=== PATIENT | female | born 1930 | race Caucasian/White ===

== ENCOUNTER 2020-01-25 11:05 | Inpatient (IN) | payer MEDICARE ==
--- NOTE | 2020-01-25 11:46 | EDM.PDOC ---
ED HPI GENERAL MEDICAL PROBLEM - General Chief Complaint: Back Pain or Injury Stated Complaint: [facility] Time Seen by Provider: 01/25/20 11:30 Source of Information: Reports: Patient, EMS History Limitations: Reports: No Limitations - History of Present Illness INITIAL COMMENTS - FREE TEXT/NARRATIVE: 89-year-old female with severe back pain. She has chronic recurring back pain, has never had surgery. 3 days ago she was bending over and looking in the refrigerator when she felt a pop in her right lower back. Not significant pain initially but she knew it was going to get worse as this has happened before. Over the last 48 hours she has had severe pain, difficulty getting around her home and this morning she could not get out of bed. She also has pain radiating down the left posterior leg just distal to the knee, but no paresthesias or incontinence. In reviewing her records she has a history of spinal stenosis. Onset: Gradual Duration: Day(s): (3 days) Location: Reports: Back Quality: Reports: Burning, Sharp Improves with: Reports: Movement, Other (Weightbearing is almost impossible) Lower Back Pain Score (Numeric/FACES): 5 - Related Data Allergies Allergy/AdvReac Type Severity Reaction Status Date / Time No Known Allergies Allergy Verified 01/25/20 11:07 Home Meds: Home Meds Acetaminophen/Diphenhydramine [Acetaminophen-Diphenhyd 500-25] 1 tab PO BEDTIME PRN 07/24/14 [History] Aspirin [Children's Aspirin] 1 tab PO DAILY 07/24/14 [History] Gabapentin [Neurontin] 600 mg PO BEDTIME 07/24/14 [History] HCTZ/Triamterene [Maxzide 25-37.5 MG] 1 tab PO DAILY 07/24/14 [History] Levothyroxine [Synthroid] 50 mcg PO DAILY 07/24/14 [History] atenoloL [Tenormin] 50 mg PO DAILY 01/25/20 [History] Past Medical History HEENT History: Reports: Cataract, Hard of Hearing Cardiovascular History: Reports: Hypertension Gastrointestinal History: Reports: Other (See Below) Other Gastrointestinal History: colong cancer Musculoskeletal History: Reports: Back Pain, Chronic, Other (See Below) Other Musculoskeletal History: left knee pain, restless legs Endocrine/Metabolic History: Reports: Hypothyroidism Oncologic (Cancer) History: Reports: Colon - Past Surgical History HEENT Surgical History: Reports: Cataract Surgery Cardiovascular Surgical History: Reports: None GI Surgical History: Reports: Appendectomy, Colon, Colonoscopy, Other (See Below ) Other GI Surgeries/Procedures: partial colectomy Endocrine Surgical History: Reports: None Musculoskeletal Surgical History: Reports: None Social & Family History - Family History Family Medical History: Noncontributory - Tobacco Use Smoking Status *Q: Never Smoker Second Hand Smoke Exposure: No - Caffeine Use Caffeine Use: Reports: None - Recreational Drug Use Recreational Drug Use: No ED ROS GENERAL - Review of Systems Review Of Systems: See Below Constitutional: Denies: Fever, Chills Respiratory: Reports: No Symptoms Cardiovascular: Reports: No Symptoms GI/Abdominal: Reports: No Symptoms Musculoskeletal: Reports: Back Pain Skin: Denies: Rash (No rash over painful area) Neurological: Reports: Other (Some radiculopathy-like pain down the left buttock and left leg but no paresthesias) Psychiatric: Reports: No Symptoms ED EXAM,LOWER BACK PAIN/INJURY - Physical Exam Exam: See Below Exam Limited By: No Limitations General Appearance: Alert, No Apparent Distress (Fairly comfortable when laying still and not bearing weight) Neck: Supple, Non-Tender Respiratory/Chest: No Respiratory Distress GI/Abdominal: Non-Tender Back Exam: Paraspinal Tenderness (Any palpation to either side of the lumbar spine especially from L3 lower causes intense pain. She also has marked increased pain with rotation of the left hip passively.) Neurological: Alert, Normal Mood/Affect, No Motor/Sensory Deficits (There is some limitations of movement to the left leg due to pain but no asymmetric weakness), Oriented x 3 Psychiatric: Normal Affect, Normal Mood Skin Exam: Warm, Dry Course - Vital Signs Last Recorded V/S: Last Vital Signs Temp 98.1 F 01/25/20 15:39 Pulse 57 L 01/25/20 15:39 Resp 16 01/25/20 15:39 BP 136/91 H 01/25/20 15:39 Pulse Ox 96 01/25/20 15:39 - Orders/Labs/Meds Orders: Medication Orders Acetaminophen (Tylenol) 650 mg PO Q4H PRN PRN Reason: Pain (Mild 1-3)/fever Atenolol (Tenormin) 50 mg PO DAILY [facility] Dexamethasone (Dexamethasone) 4 mg IVPUSH Q12H [facility] Gabapentin (Neurontin) 600 mg PO BEDTIME [facility] Levothyroxine Sodium (Synthroid) 50 mcg PO ACBREAKFAST [facility] Ondansetron HCl (Zofran) 4 mg IV Q4H PRN PRN Reason: Nausea/Vomiting Oxycodone HCl (Oxycodone) 5 mg PO Q4H PRN PRN Reason: Pain (moderate 4-6) Polyethylene Glycol (Miralax) 17 gm PO DAILY PRN PRN Reason: Constipation Senna/Docusate Sodium (Senna Plus) 1 tab PO BID [facility] Sodium Chloride (Saline Flush) 10 ml FLUSH ASDIRECTED PRN PRN Reason: Keep Vein Open Triamterene/HCTZ (Maxzide 25-37.5 Mg) 1 each PO DAILY [facility] Meds: Medications Generic Name Dose Route Start Last Admin Trade Name Freq PRN Reason Stop Dose Admin Acetaminophen 650 mg 01/25/20 15:07 Tylenol PO Q4H PRN Pain (Mild 1-3)/fever Atenolol 50 mg 01/26/20 09:00 Tenormin PO DAILY [facility] Dexamethasone 4 mg 01/25/20 16:00 Dexamethasone IVPUSH Q12H [facility] Gabapentin 600 mg 01/25/20 21:00 Neurontin PO BEDTIME [facility] Levothyroxine Sodium 50 mcg 01/26/20 07:30 Synthroid PO ACBREAKFAST [facility] Ondansetron HCl 4 mg 01/25/20 15:07 Zofran IV Q4H PRN Nausea/Vomiting Oxycodone HCl 5 mg 01/25/20 15:07 Oxycodone PO Q4H PRN Pain (moderate 4-6) Polyethylene Glycol 17 gm 01/25/20 15:07 Miralax PO DAILY PRN Constipation Senna/Docusate Sodium 1 tab 01/25/20 15:30 Senna Plus PO BID [facility] Sodium Chloride 10 ml 01/25/20 15:07 Saline Flush FLUSH ASDIRECTED PRN Keep Vein Open Triamterene/HCTZ 1 each 01/26/20 09:00 Maxzide 25-37.5 Mg PO DAILY [facility] Discontinued Medications Generic Name Dose Route Start Last Admin Trade Name Freq PRN Reason Stop Dose Admin Hydrocodone Bitart/Acetaminophen 1 tab 01/25/20 12:33 01/25/20 12:40 [place] 325-5 Mg PO 01/25/20 12:34 1 tab ONETIME ONE Administration - Re-Assessments/Exams Free Text/Narrative Re-Assessment/Exam: 01/25/20 12:20 Reviewed the patient's records, she had an MRI and x-ray of her back almost 4 years ago. She had significant spinal stenosis at that time. A CT of the lumbar spine was done today without contrast to rule out any pathologic fracture or compression fracture. She may need admission simply for pain control and initiation of rehab. 01/25/20 12:58 IMPRESSION: A grade 1 spondylolisthesis of L4 on L5 and L3 on L4 with circumferential disc bulges causing central canal narrowing. Mild right neural narrowing at L3-4 and left neural firing L4-5. Mild right neural firing at L1-2. Scoliosis concave right. Degenerative changes throughout the lumbar. No acute bone abnormality. Patient was given 1 5 mg Vicodin for pain control while waiting for the CT report. 01/25/20 13:21 30 minutes after the pain medication, the patient was assisted into the bathroom and did poorly, significant pain with any type of weightbearing especially down the left leg. I do not see how this patient can go home with this amount of discomfort especially since she lives independently. I asked Dr. Hoskins to visit with the patient to discuss admission for pain control, possibly a physical therapy consultation or further evaluation. Departure - Departure Time of Disposition: 14:49 Disposition: Admitted As Inpatient 67 Clinical Impression: Acute exacerbation of chronic low back pain - Discharge Information Sepsis Event Note - Evaluation Sepsis Screening Result: No Definite Risk - Focused Exam Vital Signs: Vital Signs Temp Pulse Resp BP Pulse Ox 01/25/20 11:14 96.6 F L 76 18 161/90 H 96 Date Exam was Performed: 01/25/20 Time Exam was Performed: 16:07
[2020-01-25] MEDS ORDERED: Acetaminophen/HYDROcodone 325-5 MG Tab PO ONE (12:33)
--- NOTE | 2020-01-25 12:51 | CRLCT ---
INDICATION: Severe back pain. Left radiculopathy. TECHNIQUE: Multiple axial images were obtained from T12 to the sacrum without contrast. Sagittal and coronal re-formatted images were obtained. COMPARISON: MRI done 06/26/2017. FINDINGS: There is no acute fracture seen. There is mild degenerative disc disease throughout the lumbar spine. There is vacuum disc phenomena at the L3-4 and L4-5 levels. There is scoliosis concave right. T12-L1: There is no significant central canal or neural foraminal stenosis. L1-2: There is no significant central canal or left neural foraminal narrowing. There is mild right neural foraminal narrowing secondary to a circumferential disc bulge. There are mild degenerative facet changes. L2-3: There is a mild circumferential disc bulge no significant central canal or neural foraminal stenosis. Mild degenerative facet changes. L3-4: There is grade 1 spondylolisthesis of L3-L4 with diffuse circumferential bulge. There is narrows the AP sac measuring 0.8 cm. There is a mild right neural foraminal narrowing. There are moderate degenerative facet changes. L4-5: There is grade 1 spondylolisthesis of L4 on L5 with a circumferential bulge narrowing the AP thecal sac to 0.8 cm. There is mild left neural foraminal narrowing. There is no right neural foraminal narrowing. There moderate degenerative facet changes bilaterally. L5-S1: There is no significant central canal or neural foraminal stenosis. There are mild bilateral degenerative facet changes. IMPRESSION: A grade 1 spondylolisthesis of L4 on L5 and L3 on L4 with circumferential disc bulges causing central canal narrowing. Mild right neural narrowing at L3-4 and left neural firing L4-5. Mild right neural firing at L1-2. Scoliosis concave right. Degenerative changes throughout the lumbar. No acute bone abnormality. Please note that all CT scans at this facility use dose modulation, iterative reconstruction, and/or weight-based dosing when appropriate to reduce radiation dose to as low as reasonably achievable. Dictated by Adeel Goncalves MD @ Jan 25 2020 12:49PM Signed by Dr. Adeel oGncalves @ Jan 25 2020 12:49PM
--- NOTE | 2020-01-25 14:05 | PCM.HP.2 ---
H&P History of Present Illness - General Date of Service: 01/25/20 Admit Problem/Dx: Admission Diagnosis/Problem Admission Diagnosis/Problem Pain Source of Information: Patient, Provider, RN Notes Reviewed History Limitations: Reports: No Limitations - History of Present Illness Initial Comments - Free Text/Narative: Ms. Helm is an 89-year-old woman who was admitted through the emergency department for further management of low back pain with radiculopathy of the left leg. She has had intermittent difficulties with her lower back, but has never had surgery. 3 days ago she bent over and noted onset of pain in her lower back which quickly involve the left leg. Pain has become progressively worse to the point where she is unable to ambulate independently. She lives by herself and has no immediate help, discharged home would be unsafe at this time. She denies weakness or sensory changes to the left leg and is had no bowel or bladder issues over the past 3 days. Lower Back Pain Score (Numeric/FACES): 5 - Related Data Allergies/Adverse Reactions: Allergies Allergy/AdvReac Type Severity Reaction Status Date / Time No Known Allergies Allergy Verified 01/25/20 11:07 Home Medications: Home Meds Acetaminophen/Diphenhydramine [Acetaminophen-Diphenhyd 500-25] 1 tab PO BEDTIME PRN 07/24/14 [History] Aspirin [Children's Aspirin] 1 tab PO DAILY 07/24/14 [History] Gabapentin [Neurontin] 1 cap PO BEDTIME 07/24/14 [History] HCTZ/Triamterene [Maxzide 25-37.5 MG] 1 tab PO DAILY 07/24/14 [History] Levothyroxine [Synthroid] 50 mcg PO DAILY 07/24/14 [History] atenoloL [Tenormin] 50 mg PO DAILY 01/25/20 [History] Past Medical History HEENT History: Reports: Cataract, Hard of Hearing Cardiovascular History: Reports: Hypertension Gastrointestinal History: Reports: Other (See Below) Other Gastrointestinal History: colong cancer Musculoskeletal History: Reports: Back Pain, Chronic, Other (See Below) Other Musculoskeletal History: left knee pain, restless legs Endocrine/Metabolic History: Reports: Hypothyroidism Oncologic (Cancer) History: Reports: Colon - Past Surgical History HEENT Surgical History: Reports: Cataract Surgery Cardiovascular Surgical History: Reports: None GI Surgical History: Reports: Appendectomy, Colon, Colonoscopy, Other (See Below ) Other GI Surgeries/Procedures: partial colectomy Endocrine Surgical History: Reports: None Musculoskeletal Surgical History: Reports: None Social & Family History - Family History Family Medical History: Noncontributory - Tobacco Use Smoking Status *Q: Never Smoker Second Hand Smoke Exposure: No - Caffeine Use Caffeine Use: Reports: None - Recreational Drug Use Recreational Drug Use: No H&P Review of Systems - Review of Systems: Review Of Systems: See Below General: Reports: No Symptoms HEENT: Reports: No Symptoms Pulmonary: Reports: No Symptoms Cardiovascular: Reports: No Symptoms Gastrointestinal: Reports: No Symptoms Genitourinary: Reports: No Symptoms Musculoskeletal: Reports: Back Pain, Leg Pain Skin: Reports: No Symptoms Psychiatric: Reports: No Symptoms Neurological: Reports: Difficulty Walking, Other (No weakness noted in either leg, pain with movement of the left leg). Denies: Confusion, Weakness, Change in Speech Exam - Exam Exam: See Below - Vital Signs Vital Signs: Last Vital Signs Temp 96.6 F L 01/25/20 11:14 Pulse 76 01/25/20 11:14 Resp 18 01/25/20 11:14 BP 161/90 H 01/25/20 11:14 Pulse Ox 96 01/25/20 11:14 Weight: 185 lb - Exam Quality Assessment: DVT Prophylaxis General: Alert, Oriented, Cooperative, Mild Distress HEENT: Conjunctiva Clear, Hearing Intact, Mucosa Moist & [place], Normal Nasal Septum, Posterior Pharynx Clear, Pupils Equal Neck: Supple, Trachea Midline, +2 Carotid Pulse wo Bruit Lungs: Clear to Auscultation, Normal Respiratory Effort Cardiovascular: Regular Rate, Regular Rhythm, Normal S1, Normal S2. No: Systolic Murmur, Diastolic Murmur GI/Abdominal Exam: Soft, Non-Tender, No Organomegaly, No Distention Back Exam: Normal Inspection, Full Range of Motion Extremities: Non-Tender, No Pedal Edema Skin: Warm, Dry, Intact Neurological: Cranial Nerves Intact, Strength Equal Bilateral, Normal Speech, Normal Tone, Sensation Intact. No: Focal Deficit Neuro Extensive - Mental Status: Alert, Oriented x3, Normal Mood/Affect, Normal Cognition, Memory Intact Sepsis Event Note - Evaluation Sepsis Screening Result: No Definite Risk - Focused Exam Vital Signs: Vital Signs Temp Pulse Resp BP Pulse Ox 01/25/20 11:14 96.6 F L 76 18 161/90 H 96 Date Exam was Performed: 01/25/20 Time Exam was Performed: 14:33 *Q Meaningful Use (ADM) - VTE Risk Assess *Q Each Risk Factor Represents 1 Point: Obesity ( BMI > 25 kg/m2) Total Score 1 Point Risk Factors: 1 Each Risk Factor Represents 2 Points: None Total Score 2 Point Risk Factors: 0 Each Risk Factor Represents 3 Points: Age 75 Years or Greater Total Score 3 Point Risk Factors: 3 Each Risk Factor Represents 5 Points: None Total Score 5 Point Risk Factors: 0 Venous Thromboembolism Risk Factor Score *Q: 4 Problem List Initiated/Reviewed/Updated: Yes Orders Last 24hrs: Active Orders 24 hr Category Date Time Status Patient Status Manage Transfer [TRANSFER] Routine ADT 01/25/20 14:00 Ordered Resuscitation Status Routine Resus Stat 01/25/20 14:02 Ordered Assessment/Plan Comment:: ASSESSMENT AND PLAN LOW BACK PAIN WITH RADICULOPATHY LEFT LEG-CT scan shows evidence of disc herniation at L3-4 and L4-5 with evidence of mild spinal stenosis at these levels. Scan also showed evidence of nerve root impingement on the left at L4- 5 which is likely cause of her current symptoms. -Pain and nausea medication as needed -Physical therapy consult -Decadron 4 mg IV every 12 hours -Consider epidural steroid injection, hold on use of Lovenox and hold daily aspirin HYPERTENSION -Continue outpatient medications MAINTENANCE ISSUES -DVT prophylaxis; SCUDs, hold on anticoagulation and aspirin to leave open the option of epidural steroid injection -GI prophylaxis; not indicated -Angela catheter; not indicated -Nutrition; 2 g sodium diet -Nicotine dependence; not required CODE STATUS-FULL CODE ADMISSION STATUS-patient will be admitted to inpatient status, expect at least a 2 night hospital stay for evaluation and management of problems as outlined above. At the time of this admission I do not reasonably expected evaluation and management of this problem will require more than a 96 hour hospital stay. DISPOSITION-anticipate discharge to home after the hospital stay. PRIMARY CARE PROVIDER-Dr. Lazo - Mortality Measure Prognosis:: Good
[2020-01-25] MEDS ORDERED: Acetaminophen 325 MG Tab PO PRN (15:07)
[2020-01-25] MEDS ORDERED: Polyethylene Glycol 3350 Powder 17 GM Packet PO PRN (15:07)
[2020-01-25] MEDS ORDERED: Ondansetron 4 MG/2 ML SDV IV PRN (15:07)
[2020-01-25] MEDS ORDERED: Sodium Chloride 0.9% 10 ML Syringe FLUSH PRN (15:07)
[2020-01-25] MEDS: Dexamethasone 4 MG/ML SDV IVPUSH SCH (16:18)
[2020-01-25] MEDS: oxyCODONE 5 MG Tab PO PRN (16:21)
[2020-01-25] MEDS: Gabapentin 300 MG Cap PO SCH (20:21)
[2020-01-25] MEDS ORDERED: Calcium Carbonate 500 MG Tab.Chew PO PRN (21:18)
[2020-01-26] MEDS: Dexamethasone 4 MG/ML SDV IVPUSH SCH ×2 (03:45→17:31)
[2020-01-26] MEDS: Levothyroxine 50 MCG Tab PO SCH (08:06)
[2020-01-26] MEDS ORDERED: Non-Formulary Medication 1 Each (Atenolol [Tenormin] 50 MG) PO SCH (09:00)
[2020-01-26] MEDS: Atenolol 25 MG Tab PO SCH (09:29)
[2020-01-26] MEDS: Hydrochlorothiazide/Triamterene 25-37.5 Tab PO SCH (09:29)
[2020-01-26] MEDS: Acetaminophen 500 MG Tab PO SCH ×3 (09:35→21:06)
--- NOTE | 2020-01-26 11:47 | PCM.PN ---
- General Info Date of Service: 01/26/20 Subjective Update: No acute events overnight. Pain is a little better but still fairly bothersome today. She did require assist of 1 to get to the bathroom. Still has pain radiating down the left leg to the foot. No significant radicular pain on the right. No fevers. No nausea. Tolerating steroids so far. Functional Status: Reports: Pain Controlled, Tolerating Diet - Review of Systems General: Reports: Weakness - Patient Data Vitals - Most Recent: Last Vital Signs Temp 36.9 C 01/26/20 11:19 Pulse 53 L 01/26/20 11:19 Resp 16 01/26/20 11:19 BP 113/97 H 01/26/20 11:19 Pulse Ox 95 01/26/20 11:19 Weight - Most Recent: 83.915 kg I&O - Last 24 Hours: Intake & Output 01/25/20 01/26/20 01/26/20 22:59 06:59 14:59 Intake Total 420 480 Balance 420 480 Med Orders - Current: Current Medications Acetaminophen (Tylenol Extra Strength) 1,000 mg PO TID REPLACED BY [facility] Last Admin: 01/26/20 09:35 Dose: 1,000 mg Atenolol (Tenormin) 50 mg PO DAILY REPLACED BY [facility] Last Admin: 01/26/20 09:29 Dose: 50 mg Calcium Carbonate/Glycine (Tums) 1,000 mg PO Q2H PRN PRN Reason: Indigestion Last Admin: 01/25/20 21:49 Dose: 1,000 mg Dexamethasone (Dexamethasone) 4 mg IVPUSH Q12H REPLACED BY [facility] Last Admin: 01/26/20 03:45 Dose: 4 mg Gabapentin (Neurontin) 600 mg PO BEDTIME REPLACED BY [facility] Last Admin: 01/25/20 20:21 Dose: 600 mg Levothyroxine Sodium (Synthroid) 50 mcg PO ACBREAKFAST REPLACED BY [facility] Last Admin: 01/26/20 08:06 Dose: 50 mcg Ondansetron HCl (Zofran) 4 mg IV Q4H PRN PRN Reason: Nausea/Vomiting Oxycodone HCl (Oxycodone) 5 mg PO Q4H PRN PRN Reason: Pain (moderate 4-6) Last Admin: 01/25/20 16:21 Dose: 5 mg Polyethylene Glycol (Miralax) 17 gm PO DAILY PRN PRN Reason: Constipation Senna/Docusate Sodium (Senna Plus) 1 tab PO BID [facility] Last Admin: 01/26/20 09:29 Dose: 1 tab Sodium Chloride (Saline Flush) 10 ml FLUSH ASDIRECTED PRN PRN Reason: Keep Vein Open Triamterene/HCTZ (Maxzide 25-37.5 Mg) 1 each PO DAILY [facility] Last Admin: 01/26/20 09:29 Dose: 1 each Discontinued Medications Acetaminophen (Tylenol) 650 mg PO Q4H PRN PRN Reason: Pain (Mild 1-3)/fever Last Admin: 01/25/20 16:21 Dose: 650 mg Hydrocodone Bitart/Acetaminophen ([place] 325-5 Mg) 1 tab PO ONETIME ONE Stop: 01/25/20 12:34 Last Admin: 01/25/20 12:40 Dose: 1 tab - Exam Quality Assessment: No: Supplemental Oxygen General: Alert, Oriented, Cooperative, No Acute Distress Lungs: Normal Respiratory Effort GI/Abdominal Exam: Soft, No Distention Extremities: No Pedal Edema Psy/Mental Status: Alert, Normal Affect Sepsis Event Note - Evaluation Sepsis Screening Result: No Definite Risk - Focused Exam Vital Signs: Vital Signs Temp Pulse Pulse Pulse Resp BP BP 01/26/20 11:19 36.9 C 53 L 16 01/26/20 09:29 64 145/58 H 01/26/20 08:10 35.9 C L 64 12 01/26/20 03:38 36.4 C 60 16 01/26/20 00:15 36.2 C 58 L 16 145/70 H BP Pulse Ox 01/26/20 11:19 113/97 H 95 01/26/20 09:29 01/26/20 08:10 145/58 H 96 01/26/20 03:38 123/56 L 93 L 01/26/20 00:15 94 L Date Exam was Performed: 01/26/20 Time Exam was Performed: 12:48 - Problem List Review Problem List Initiated/Reviewed/Updated: Yes - My Orders Last 24 Hours: My Active Orders 01/26/20 09:00 Acetaminophen [Tylenol Extra Strength] 1,000 mg PO TID 01/27/20 05:00 BASIC METABOLIC PANEL,BMP [CHEM] Timed CBC W/O DIFF,HEMOGRAM [HEME] Timed (1) - Plan Plan:: ASSESSMENT AND PLAN LOW BACK PAIN WITH RADICULOPATHY LEFT LEG-CT scan shows evidence of disc herniation at L3-4 and L4-5 with evidence of mild spinal stenosis at these levels. Scan also showed evidence of nerve root impingement on the left at L4- 5 which is likely cause of her current symptoms. Doing a little better today but still requiring a fair amount of assistance. -Scheduled acetaminophen -As needed narcotics -Continue gabapentin -Physical therapy consult -Decadron 4 mg IV every 12 hours -epidural steroid injection this afternoon HYPERTENSION-stable. -Continue outpatient medications MAINTENANCE ISSUES -DVT prophylaxis; SCUDs -GI prophylaxis; not indicated -Angela catheter; not indicated -Nutrition; 2 g sodium diet DISPOSITION-anticipate discharge to home with home care after the hospital stay. Manjeet Archer MD
[2020-01-26] MEDS ORDERED: methylPREDNISolone Acetate 80 MG/ML SDV ONE (14:37)
[2020-01-26] MEDS ORDERED: Bupivacaine 0.25% 10 ML SDV ONE (14:37)
[2020-01-26] MEDS: Gabapentin 300 MG Cap PO SCH (21:06)
--- NOTE | 2020-01-26 21:43 | ANES ---
DATE OF SERVICE: 01/26/2020 INDICATIONS: Lucila is an 89-year-old female patient who had come in on Sunday yesterday evening January 24 for back pain and then ended up having a CT scan that showed she had according to Dr. Archer a L4-5 disk bulge with radicular pain down into her left leg. Dr. Archer was requesting the patient receive epidural steroid injection for back pain. Today, I went up and discussed the risks and benefits with the patient. The patient is in pretty good health and is not on any blood thinners. Has not had any significant back issues or back surgery and wishes to proceed with the epidural steroid injection today. Please refer to the doctor's notes for ICD-10 code and diagnosis. TECHNIQUE: The patient was then sat at the edge of the bed. Betadine prep x3 to the lumbar region was done, sterile drape was placed. A time-out for procedure was done at that time. 1% lidocaine skin wheal and deep was done. A 17-gauge Tuohy needle was inserted at approximately the L4-5 position. Loss of resistance was easily achieved. Negative paresthesia, negative heme, negative CSF were noted. I then proceeded to give the patient 7 mL of sterile normal saline with 2 mL of 0.25% Sensorcaine and 1 mL of 80 mg Depo-Medrol. The Tuohy needle was then flushed and withdrawn. Sterile drape was taken down. Betadine was cleaned off her back and a Band-Aid was applied to the puncture site for hemostasis. The patient tolerated the procedure without difficulty. Please refer to the nurse's notes for vital signs. The patient is already an inpatient and under the care of Dr. Archer, so the patient will be monitored vital signs for the next 15 to 30 minutes with the nurse but discharge will be upon Dr. Archer. I did set the patient up for about 2-1/2 weeks for pain clinic again for her second JASON. Ramiro Granado CRNA /[id number]
[2020-01-26] MEDS: Melatonin 3 MG Tab PO PRN (21:52)
[2020-01-26] MEDS: oxyCODONE 5 MG Tab PO PRN (21:52)
[2020-01-27] MEDS: Dexamethasone 4 MG/ML SDV IVPUSH SCH (03:52)
[2020-01-27] MEDS: Levothyroxine 50 MCG Tab PO SCH (07:15)
[2020-01-27] MEDS: Atenolol 25 MG Tab PO SCH (09:29)
[2020-01-27] MEDS: Hydrochlorothiazide/Triamterene 25-37.5 Tab PO SCH (09:29)
[2020-01-27] MEDS: Acetaminophen 500 MG Tab PO SCH ×3 (09:29→22:03)
--- NOTE | 2020-01-27 11:41 | PCM.PN ---
- General Info Date of Service: 01/27/20 Subjective Update: No acute events overnight. Pain is a little better today. She reports very little pain at rest but does have moderate pain with activity. She thinks this is a little better today. She did tolerate her epidural steroid injection well yesterday. This morning she feels dizzy/lightheaded. She reports seeing unusual things on the floor and describes brown shag carpet rather than the hard and smooth hospital floor. She has not had any fevers. Functional Status: Reports: Pain Controlled, Tolerating Diet - Review of Systems General: Reports: Weakness Musculoskeletal: Reports: Back Pain, Leg Pain - Patient Data Vitals - Most Recent: Last Vital Signs Temp 35.9 C L 01/27/20 07:18 Pulse 52 L 01/27/20 09:29 Resp 16 01/27/20 07:18 BP 161/60 H 01/27/20 09:29 Pulse Ox 96 01/27/20 07:18 Weight - Most Recent: 83.915 kg I&O - Last 24 Hours: Intake & Output 01/26/20 01/27/20 01/27/20 22:59 06:59 14:59 Intake Total 540 450 Balance 540 450 Lab Results Last 24 Hours: Laboratory Results - last 24 hr 01/27/20 01/27/20 Range/Units 04:15 04:15 WBC 16.2 H (4.5-11.0) K/uL RBC 4.31 (3.30-5.50) M/uL Hgb 13.4 (12.0-15.0) g/dL Hct 39.0 (36.0-48.0) % MCV 91 (80-98) fL MCH 31 (27-31) pg MCHC 34 (32-36) % Plt Count 213 (150-400) K/uL Sodium 130 L (140-148) mmol/L Potassium 4.1 (3.6-5.2) mmol/L Chloride 95 L (100-108) mmol/L Carbon Dioxide 25 (21-32) mmol/L Anion Gap 14.1 H (5.0-14.0) mmol/L BUN 22 H (7-18) mg/dL Creatinine 1.4 H (0.6-1.0) mg/dL Est Cr Clr Drug Dosing 21.78 mL/min Estimated GFR (MDRD) 35 L (>60) Glucose 123 H (74-106) mg/dL Calcium 8.6 (8.5-10.1) mg/dL Med Orders - Current: Current Medications Acetaminophen (Tylenol Extra Strength) 1,000 mg PO TID [facility] Last Admin: 01/27/20 09:29 Dose: 1,000 mg Atenolol (Tenormin) 50 mg PO DAILY [facility] Last Admin: 01/27/20 09:29 Dose: 50 mg Calcium Carbonate/Glycine (Tums) 1,000 mg PO Q2H PRN PRN Reason: Indigestion Last Admin: 01/25/20 21:49 Dose: 1,000 mg Dexamethasone (Dexamethasone) 4 mg IVPUSH Q12H [facility] Last Admin: 01/27/20 03:52 Dose: 4 mg Gabapentin (Neurontin) 600 mg PO BEDTIME [facility] Last Admin: 01/26/20 21:06 Dose: 600 mg Levothyroxine Sodium (Synthroid) 50 mcg PO ACBREAKFAST [facility] Last Admin: 01/27/20 07:15 Dose: 50 mcg Melatonin (Melatonin) 9 mg PO BEDTIME PRN PRN Reason: Insomnia Last Admin: 01/26/20 21:52 Dose: 9 mg Ondansetron HCl (Zofran) 4 mg IV Q4H PRN PRN Reason: Nausea/Vomiting Oxycodone HCl (Oxycodone) 5 mg PO Q4H PRN PRN Reason: Pain (moderate 4-6) Last Admin: 01/26/20 21:52 Dose: 5 mg Polyethylene Glycol (Miralax) 17 gm PO DAILY PRN PRN Reason: Constipation Senna/Docusate Sodium (Senna Plus) 1 tab PO BID [facility] Last Admin: 01/27/20 09:29 Dose: 1 tab Sodium Chloride (Saline Flush) 10 ml FLUSH ASDIRECTED PRN PRN Reason: Keep Vein Open Triamterene/HCTZ (Maxzide 25-37.5 Mg) 1 each PO DAILY [facility] Last Admin: 01/27/20 09:29 Dose: 1 each Discontinued Medications Acetaminophen (Tylenol) 650 mg PO Q4H PRN PRN Reason: Pain (Mild 1-3)/fever Last Admin: 01/25/20 16:21 Dose: 650 mg Hydrocodone Bitart/Acetaminophen ([place] 325-5 Mg) 1 tab PO ONETIME ONE Stop: 01/25/20 12:34 Last Admin: 01/25/20 12:40 Dose: 1 tab Bupivacaine HCl (Sensorcaine-Mpf 0.25%) Confirm Administered Dose 10 ml .ROUTE .STK-MED ONE Stop: 01/26/20 14:38 Methylprednisolone Acetate (Depo-Medrol) Confirm Administered Dose 80 mg .ROUTE .STK-MED ONE Stop: 01/26/20 14:38 - Exam Quality Assessment: No: Supplemental Oxygen General: Alert, Oriented, Cooperative, No Acute Distress Lungs: Normal Respiratory Effort Cardiovascular: Regular Rate, Regular Rhythm GI/Abdominal Exam: Soft, No Distention Extremities: No Pedal Edema Skin: Warm, Dry Psy/Mental Status: Alert, Normal Affect Sepsis Event Note - Evaluation Sepsis Screening Result: No Definite Risk - Focused Exam Vital Signs: Vital Signs Temp Pulse Pulse Resp BP BP Pulse Ox 01/27/20 09:29 52 L 161/60 H 01/27/20 07:18 35.9 C L 50 L 16 161/60 H 96 01/27/20 03:54 35.8 C L 52 L 16 137/53 L 94 L Date Exam was Performed: 01/27/20 Time Exam was Performed: 14:44 - Problem List Review Problem List Initiated/Reviewed/Updated: Yes - My Orders Last 24 Hours: My Active Orders 01/26/20 20:14 Melatonin 9 mg PO BEDTIME PRN 01/27/20 11:39 UA W/MICROSCOPIC [URIN] Routine - Plan Plan:: ASSESSMENT AND PLAN LOW BACK PAIN WITH RADICULOPATHY LEFT LEG-CT scan shows evidence of disc herniation at L3-4 and L4-5 with evidence of mild spinal stenosis at these levels. Scan also showed evidence of nerve root impingement on the left at L4- 5 which is likely cause of her current symptoms. Tolerated JASON well. Pain controlled decent at this time. She is having some hallucinations which could be from the steroids. -Scheduled acetaminophen -As needed narcotics -Continue gabapentin -Physical therapy consult -Discontinue IV steroids HYPERTENSION-stable. -Continue outpatient medications MAINTENANCE ISSUES -DVT prophylaxis; SCUDs -GI prophylaxis; not indicated -Angela catheter; not indicated -Nutrition; 2 g sodium diet DISPOSITION-anticipate discharge to home with home care after the hospital stay. With her dizziness and possible hallucinations she is not safe for discharge today but hopefully tomorrow. Manjeet Archer MD
[2020-01-27] MEDS: Gabapentin 300 MG Cap PO SCH (22:04)
[2020-01-27] MEDS: Melatonin 3 MG Tab PO PRN (22:07)
[2020-01-28] MEDS: Levothyroxine 50 MCG Tab PO SCH (07:45)
[2020-01-28] MEDS: Acetaminophen 500 MG Tab PO SCH ×4 (09:23→21:03)
[2020-01-28] MEDS: Hydrochlorothiazide/Triamterene 25-37.5 Tab PO SCH (09:24)
[2020-01-28] MEDS: Atenolol 25 MG Tab PO SCH (09:24)
[2020-01-28] MEDS: oxyCODONE 5 MG Tab PO PRN ×4 (10:02→22:28)
--- NOTE | 2020-01-28 11:01 | PCM.PN ---
- General Info Date of Service: 01/28/20 Subjective Update: There were no acute events overnight. Patient had excellent pain control throughout the day yesterday. Her nausea has resolved. Her dizziness has resolved. Vital signs have been stable. She did well with physical therapy this morning but unfortunately shortly afterwards developed moderately severe pain that radiates from her lower back down the left leg. She just received a pain pill prior to me seeing her but it has not helped much yet. Prior to this still she had not used pain medications in more than 24 hours. Functional Status: Reports: Tolerating Diet. Denies: Pain Controlled - Review of Systems General: Denies: Fever Musculoskeletal: Reports: Back Pain, Leg Pain - Patient Data Vitals - Most Recent: Last Vital Signs Temp 36.9 C 01/28/20 10:32 Pulse 64 01/28/20 10:32 Resp 18 01/28/20 10:32 BP 127/48 L 01/28/20 10:32 Pulse Ox 96 01/28/20 10:32 Weight - Most Recent: 83.915 kg I&O - Last 24 Hours: Intake & Output 01/27/20 01/28/20 01/28/20 22:59 06:59 14:59 Intake Total 150 260 Output Total 600 Balance -450 260 Lab Results Last 24 Hours: Laboratory Results - last 24 hr 01/27/20 Range/Units 16:03 Urine Color Yellow (YELLOW) Urine Appearance Clear (CLEAR) Urine pH 7.0 (5.0-8.0) Ur Specific [place] 1.020 (1.008-1.030) Urine Protein Negative (NEGATIVE) mg/dL Urine Glucose (UA) Negative (NEGATIVE) mg/dL Urine Ketones Negative (NEGATIVE) mg/dL Urine Occult Blood Trace-intact H (NEGATIVE) Urine Nitrite Negative (NEGATIVE) Urine Bilirubin Negative (NEGATIVE) Urine Urobilinogen 0.2 (0.2-1.0) EU/dL Ur Leukocyte Esterase Negative (NEGATIVE) Urine RBC 0-5 (0-5) Urine WBC 0-5 (0-5) Ur Epithelial Cells Few Amorphous Sediment Not seen Urine Bacteria Few Urine Mucus Not seen Med Orders - Current: Current Medications Acetaminophen (Tylenol Extra Strength) 1,000 mg PO TID [facility] Last Admin: 01/28/20 09:30 Dose: Not Given Atenolol (Tenormin) 50 mg PO DAILY [facility] Last Admin: 01/28/20 09:24 Dose: 50 mg Calcium Carbonate/Glycine (Tums) 1,000 mg PO Q2H PRN PRN Reason: Indigestion Last Admin: 01/25/20 21:49 Dose: 1,000 mg Gabapentin (Neurontin) 600 mg PO BEDTIME [facility] Last Admin: 01/27/20 22:04 Dose: 600 mg Levothyroxine Sodium (Synthroid) 50 mcg PO ACBREAKFAST [facility] Last Admin: 01/28/20 07:45 Dose: 50 mcg Melatonin (Melatonin) 9 mg PO BEDTIME PRN PRN Reason: Insomnia Last Admin: 01/27/20 22:07 Dose: 9 mg Ondansetron HCl (Zofran) 4 mg IV Q4H PRN PRN Reason: Nausea/Vomiting Oxycodone HCl (Oxycodone) 5 mg PO Q4H PRN PRN Reason: Pain (moderate 4-6) Last Admin: 01/28/20 10:02 Dose: 5 mg Polyethylene Glycol (Miralax) 17 gm PO DAILY PRN PRN Reason: Constipation Senna/Docusate Sodium (Senna Plus) 1 tab PO BID [facility] Last Admin: 01/28/20 09:23 Dose: 1 tab Sodium Chloride (Saline Flush) 10 ml FLUSH ASDIRECTED PRN PRN Reason: Keep Vein Open Triamterene/HCTZ (Maxzide 25-37.5 Mg) 1 each PO DAILY [facility] Last Admin: 01/28/20 09:24 Dose: 1 each Discontinued Medications Acetaminophen (Tylenol) 650 mg PO Q4H PRN PRN Reason: Pain (Mild 1-3)/fever Last Admin: 01/25/20 16:21 Dose: 650 mg Hydrocodone Bitart/Acetaminophen ([place] 325-5 Mg) 1 tab PO ONETIME ONE Stop: 01/25/20 12:34 Last Admin: 01/25/20 12:40 Dose: 1 tab Bupivacaine HCl (Sensorcaine-Mpf 0.25%) Confirm Administered Dose 10 ml .ROUTE .STK-MED ONE Stop: 01/26/20 14:38 Dexamethasone (Dexamethasone) 4 mg IVPUSH Q12H [facility] Last Admin: 01/27/20 03:52 Dose: 4 mg Methylprednisolone Acetate (Depo-Medrol) Confirm Administered Dose 80 mg .ROUTE .STK-MED ONE Stop: 01/26/20 14:38 - Exam Quality Assessment: No: Supplemental Oxygen General: Alert, Oriented, Cooperative, No Acute Distress Lungs: Normal Respiratory Effort Cardiovascular: Regular Rate, Regular Rhythm GI/Abdominal Exam: Soft, No Distention Back Exam: Vertebral Tenderness (lower lumbar ). No: Muscle Spasm Extremities: No Pedal Edema Skin: Warm, Dry Psy/Mental Status: Alert, Normal Affect Sepsis Event Note - Evaluation Sepsis Screening Result: No Definite Risk - Focused Exam Vital Signs: Vital Signs Temp Pulse Pulse Resp BP BP Pulse Ox 01/28/20 10:32 36.9 C 64 18 127/48 L 96 01/28/20 09:24 55 L 119/59 L 01/28/20 07:00 34.6 C L 50 L 16 146/75 H 96 01/28/20 03:00 16 Date Exam was Performed: 01/28/20 Time Exam was Performed: 13:28 - Problem List Review Problem List Initiated/Reviewed/Updated: Yes - My Orders Last 24 Hours: My Active Orders 01/28/20 10:59 Trolamine Salicylate/Aloe Vera [Aspercreme 10%] 1 gm TOP Q1H PRN dexAMETHasone 4 mg PO ONETIME ONE 01/28/20 11:00 Cooling Warming Measures [RC] ASDIRECTED Heat Therapy [OM.PC] Routine 01/29/20 09:00 dexAMETHasone 4 mg PO DAILY - Plan Plan:: ASSESSMENT AND PLAN LOW BACK PAIN WITH RADICULOPATHY LEFT LEG-CT scan shows evidence of disc herniation at L3-4 and L4-5 with evidence of mild spinal stenosis at these levels. Scan also showed evidence of nerve root impingement on the left at L4- 5 which is likely cause of her current symptoms. Tolerated JASON well. Pain had been well controlled until after physical therapy. She is now in significant discomfort. Nausea and dizziness better after IV steroids were stopped yesterday. -Scheduled acetaminophen -As needed narcotics -Continue gabapentin -Once daily oral steroids -Aspercreme as needed -Heating pad to lower back -Physical therapy consult HYPERTENSION-stable. -Continue outpatient medications MAINTENANCE ISSUES -DVT prophylaxis; SCUDs -GI prophylaxis; not indicated -Angela catheter; not indicated -Nutrition; 2 g sodium diet DISPOSITION-anticipate discharge to home with home care after the hospital stay. With her significantly increased pain today she is not safe for discharge. Manjeet Archer MD
[2020-01-28] MEDS ORDERED: Dexamethasone 4 MG Tab PO ONE (11:30)
[2020-01-28] MEDS: Trolamine Salicylate/Aloe Vera 10% Crm 85 GM Tube TOP PRN ×2 (11:54→21:06)
[2020-01-28] MEDS: Gabapentin 300 MG Cap PO SCH (21:03)
[2020-01-28] MEDS: Melatonin 3 MG Tab PO PRN (21:06)
[2020-01-29] MEDS: Levothyroxine 50 MCG Tab PO SCH (07:31)
[2020-01-29] MEDS ORDERED: Dexamethasone 4 MG Tab PO SCH (08:00)
[2020-01-29] MEDS: Hydrochlorothiazide/Triamterene 25-37.5 Tab PO SCH (08:50)
[2020-01-29] MEDS: Atenolol 25 MG Tab PO SCH (08:51)
[2020-01-29] MEDS: Acetaminophen 500 MG Tab PO SCH ×2 (08:51→13:58)
[2020-01-29] MEDS: Trolamine Salicylate/Aloe Vera 10% Crm 85 GM Tube TOP PRN ×2 (09:15→11:41)
--- NOTE | 2020-01-29 10:04 | PCM.DCSUM1 ---
Discharge Summary - Hospital Course Brief History: 89-year-old female with history of stage III chronic kidney disease, essential hypertension and chronic lower back pain who presented with acute on chronic lower back pain. She was admitted for management of an exacerbation of her lower back pain with radiculopathy. CT scan noted disc bulging at 2 levels with nerve impingement at 2 levels. Diagnosis: Stroke: No - Discharge Data Discharge Date: 01/29/20 Discharge Disposition: DC/Tfer to SNF 03 Condition: Good - Referral to Home Health Primary Care Physician: Sim Lazo MD - Discharge Diagnosis/Problem(s) (1) Lumbar disc disease with radiculopathy SNOMED Code(s): 688149427 ICD Code: M51.16 - INTERVERTEBRAL DISC DISORDERS W RADICULOPATHY, LUMBAR REGION Status: Acute Current Visit: Yes (2) CKD (chronic kidney disease), stage III SNOMED Code(s): 143918469 ICD Code: N18.3 - CHRONIC KIDNEY DISEASE, STAGE 3 (MODERATE) Status: Chronic Current Visit: Yes (3) Essential hypertension SNOMED Code(s): 82777290 ICD Code: I10 - ESSENTIAL (PRIMARY) HYPERTENSION Status: Chronic Current Visit: Yes - Patient Summary/Data Consults: Consultations 01/25/20 15:07 PT Evaluation and Treatment [CONS] Routine Please Evaluate and Treat. PT Reason for Consult: Low back pain with radiculopathy This query below is only for informational purposes and is not editable. Hospital Course: Lucila scented with acute on chronic lower back pain with pain radiating down the left leg. A CT scan was obtained in the emergency room and this showed disc bulges at L3/L4 and L4/L5. She had some nerve root impingement on the right at L3/L4 as well as on the left at L4/L5. She was started on IV steroids and oxycodone and admitted to the hospital for further management and physical therapy. The morning after admission we did add scheduled acetaminophen. I asked the anesthesia folks to come see her about an epidural steroid injection and this was performed the day after admission. She tolerated the procedure well. Overnight her pain was well controlled and there were no major issues. The next morning she had developed nausea and dizziness. I suspect that this was related to her IV steroids so I discontinued the dexamethasone at this point. Overnight the nausea and dizziness settled down. The next morning unfortunately she developed more acute pain in the lower back following physical therapy. This did eventually calm down with combination of oxycodone, heating pad and Aspercreme. We did restart steroids but scheduled them only once daily and utilized oral rather than IV. She has tolerated these well other than having some difficulty with sleeping. Overall her pain is fairly well-controlled with the scheduled acetaminophen, as needed oxycodone along with the steroids, steroid injections and gabapentin. She has been working with physical therapy and overall does fairly well but she would benefit from subacute rehab to improve her strength and endurance as she is able to only tolerate short periods of activity for her pain increases. She is elderly and lives alone and is not safe for discharge to home even with home care at this point. She will be discharged to the transitional care unit for subacute rehab. - Patient Instructions Diet: Regular Diet as Tolerated Activity: As Tolerated Driving: Do Not Drive (if taking pain pills) Showering/Bathing: May Shower Notify Provider of: Fever, Increased Pain, Nausea and/or Vomiting Other/Special Instructions: 1. You were in the hospital for management of lower back pain and left leg pain resulting from bulging disks in your lumbar spine at L3/L4 and L4/L5. These disc bulges are pressing on the nerve roots as they exit from the spinal cord in your lower back. We are treating the pain with a combination of scheduled acetaminophen, as needed oxycodone, gabapentin at bedtime as well as a temporary course of steroids. While you were in the hospital you did receive an epidural steroid injection and another one is planned for early in February. I do recommend subacute rehab with physical and occupational therapy to help improve your strength, endurance and hopefully help reduce the pain even further. 2. Continue your usual home medications as previously prescribed. 3. Code status - FULL CODE. 4. Referral to physical and occupational therapy for strengthening in the setting of acute lower back pain with radiculopathy. - Discharge Plan *PRESCRIPTION DRUG MONITORING PROGRAM REVIEWED*: Not Applicable *COPY OF PRESCRIPTION DRUG MONITORING REPORT IN PATIENT CONNER: Not Applicable Prescriptions/Med Rec: Acetaminophen [Tylenol Extra Strength] 1,000 mg PO TID #200 tablet dexAMETHasone [Dexamethasone] 2 mg PO DAILY #5 tablet dexAMETHasone [Dexamethasone] 4 mg PO DAILY@0800 #3 tablet Melatonin 10 mg PO BEDTIME #15 tablet oxyCODONE 5 mg PO Q4H PRN #45 tablet PRN Reason: Pain (Moderate 4-6) Trolamine Salicylate/Aloe Vera [Aspercreme 10%] 1 gm TOP Q4H PRN #60 tube PRN Reason: lower back pain Home Medications: Home Meds Aspirin [Children's Aspirin] 1 tab PO DAILY 07/24/14 [History] Gabapentin [Neurontin] 600 mg PO BEDTIME 07/24/14 [History] HCTZ/Triamterene [Maxzide 25-37.5 MG] 1 tab PO DAILY 07/24/14 [History] Levothyroxine [Synthroid] 50 mcg PO DAILY 07/24/14 [History] atenoloL [Tenormin] 50 mg PO DAILY 01/25/20 [History] Acetaminophen [Tylenol Extra Strength] 1,000 mg PO TID #200 tablet 01/29/20 [Rx] Melatonin 10 mg PO BEDTIME #15 tablet 01/29/20 [Rx] Trolamine Salicylate/Aloe Vera [Aspercreme 10%] 1 gm TOP Q4H PRN #60 tube [Rx] dexAMETHasone [Dexamethasone] 2 mg PO DAILY #5 tablet 01/29/20 [Rx] dexAMETHasone [Dexamethasone] 4 mg PO DAILY@0800 #3 tablet 01/29/20 [Rx] oxyCODONE 5 mg PO Q4H PRN #45 tablet 01/29/20 [Rx] Oxygen Therapy Mode: Room Air Patient Handouts: Lumbosacral Radiculopathy Referrals: Sim Lazo MD [Primary Care Provider] - Ramiro Granado CRNA [HERBARIUM CURATOR] - 02/11/20 2:15 pm (Epidural steriod injection at [facility] on February 10 at 2:15 in outpatient department. Plan for approximately 1 hour time. ) - Discharge Summary/Plan Comment DC Time >30 min.: Yes (40-new [facility] discharge ) - Patient Data Vitals - Most Recent: Last Vital Signs Temp 36.2 C 01/29/20 07:29 Pulse 52 L 01/29/20 08:51 Resp 16 01/29/20 07:29 BP 133/56 L 01/29/20 08:51 Pulse Ox 96 01/29/20 07:29 Weight - Most Recent: 83.915 kg Med Orders - Current: Current Medications Acetaminophen (Tylenol Extra Strength) 1,000 mg PO TID COUNT INCLUDES [facility] Last Admin: 01/29/20 08:51 Dose: 1,000 mg Atenolol (Tenormin) 50 mg PO DAILY COUNT INCLUDES [facility] Last Admin: 01/29/20 08:51 Dose: 50 mg Calcium Carbonate/Glycine (Tums) 1,000 mg PO Q2H PRN PRN Reason: Indigestion Last Admin: 01/25/20 21:49 Dose: 1,000 mg Dexamethasone (Dexamethasone) 4 mg PO DAILY@0800 COUNT INCLUDES THE [facility] Last Admin: 01/29/20 08:50 Dose: 4 mg Gabapentin (Neurontin) 600 mg PO BEDTIME COUNT INCLUDES THE [facility] Last Admin: 01/28/20 21:03 Dose: 600 mg Levothyroxine Sodium (Synthroid) 50 mcg PO ACBREAKFAST COUNT INCLUDES THE [facility] Last Admin: 01/29/20 07:31 Dose: 50 mcg Melatonin (Melatonin) 9 mg PO BEDTIME PRN PRN Reason: Insomnia Last Admin: 01/28/20 21:06 Dose: 9 mg Ondansetron HCl (Zofran) 4 mg IV Q4H PRN PRN Reason: Nausea/Vomiting Oxycodone HCl (Oxycodone) 5 mg PO Q4H PRN PRN Reason: Pain (moderate 4-6) Last Admin: 01/28/20 22:28 Dose: 5 mg Polyethylene Glycol (Miralax) 17 gm PO DAILY PRN PRN Reason: Constipation Senna/Docusate Sodium (Senna Plus) 1 tab PO BID [facility]CLUD[facility] Last Admin: 01/29/20 08:51 Dose: 1 tab Sodium Chloride (Saline Flush) 10 ml FLUSH ASDIRECTED PRN PRN Reason: Keep Vein Open Triamterene/HCTZ (Maxzide 25-37.5 Mg) 1 each PO DAILY [facility]CLUDES [facility] Last Admin: 01/29/20 08:50 Dose: 1 each Trolamine Salicylate (Aspercreme 10%) 0 gm TOP Q1H PRN PRN Reason: lower back pain Last Admin: 01/29/20 09:15 Dose: 1 applic Discontinued Medications Acetaminophen (Tylenol) 650 mg PO Q4H PRN PRN Reason: Pain (Mild 1-3)/fever Last Admin: 01/25/20 16:21 Dose: 650 mg Hydrocodone Bitart/Acetaminophen ([place] 325-5 Mg) 1 tab PO ONETIME ONE Stop: 01/25/20 12:34 Last Admin: 01/25/20 12:40 Dose: 1 tab Bupivacaine HCl (Sensorcaine-Mpf 0.25%) Confirm Administered Dose 10 ml .ROUTE .STK-MED ONE Stop: 01/26/20 14:38 Dexamethasone (Dexamethasone) 4 mg IVPUSH Q12H [facility] Last Admin: 01/27/20 03:52 Dose: 4 mg Dexamethasone (Dexamethasone) 4 mg PO ONETIME ONE Stop: 01/28/20 11:31 Last Admin: 01/28/20 11:55 Dose: 4 mg Methylprednisolone Acetate (Depo-Medrol) Confirm Administered Dose 80 mg .ROUTE .STK-MED ONE Stop: 01/26/20 14:38 - Exam Quality Assessment: Denies: Supplemental Oxygen General: Reports: Alert, Oriented, Cooperative, No Acute Distress Lungs: Reports: Normal Respiratory Effort Cardiovascular: Reports: Regular Rate, Regular Rhythm GI/Abdominal Exam: Soft, No Distention Extremities: No Pedal Edema Psy/Mental Status: Reports: Alert, Normal Affect
[2020-01-29 11:40] VITALS: BP 99/71; PULSE 53
[2020-01-29] MEDS: oxyCODONE 5 MG Tab PO PRN (11:40)
== END 2020-01-29 14:14 | DRG 552 ==
LOC: JP.ED 11:05 → JP.MS 14:00
PROVIDERS: ADMIT Hospitalist; ATTEND Internal Medicine
PROC: 3E0R33Z Introduction of Anti-inflammatory into Spinal Canal, Percutaneous Approach (ICD-10-PCS; principal; 2020-01-26)
DX: M51.16 Intervertebral disc disorders with radiculopathy, lumbar region (principal); M43.16 Spondylolisthesis, lumbar region; I10 Essential (primary) hypertension; M48.061 Spinal stenosis, lumbar region without neurogenic claudication; Z79.82 Long term (current) use of aspirin; Z79.899 Other long term (current) drug therapy; I12.9 Hypertensive chronic kidney disease with stage 1 through stage 4 chronic kidney disease, or unspecified chronic kidney disease; N18.3 Chronic kidney disease, stage 3 (moderate); R42 Dizziness and giddiness; R11.0 Nausea; T38.0X5A Adverse effect of glucocorticoids and synthetic analogues, initial encounter; E03.9 Hypothyroidism, unspecified; Z98.49 Cataract extraction status, unspecified eye; Z85.038 Personal history of other malignant neoplasm of large intestine; Z90.49 Acquired absence of other specified parts of digestive tract
CPT/HCPCS: 36415; 72131; 80048; 81001; 85027; 97110-GP; 97116-GP; 97161-GP; 97530-GP; 99283; 99285-25; A9270-GY; J1040; J1100; J3490; J8540

== ENCOUNTER 2021-01-05 00:17 | Inpatient (IN) | payer MEDICARE ==
--- NOTE | 2021-01-05 00:57 | EDM.PDOC ---
ED HPI GENERAL MEDICAL PROBLEM - General Chief Complaint: General Stated Complaint: MEDICAL VIA [facility] Time Seen by Provider: 01/05/21 00:40 Source of Information: Reports: Patient, Old Records, RN History Limitations: Reports: No Limitations - History of Present Illness INITIAL COMMENTS - FREE TEXT/NARRATIVE: 89 yo female presents via EMS due to weakness. Says she was playing cards around dinner time and developed proximal L arm achiness and a burning sensation in her throat. She then fell asleep and awoke about 11 pm tonight with diaphoresis. At that time the throat and arm sx's had resolved. She called for an ambulance at this point. On arrival the diaphoresis is also resolved. Onset: Gradual Onset Date: 01/04/21 Duration: Hour(s):, Resolved Prior to Arrival Location: Reports: Generalized (weakness now) Quality: Reports: Ache (in L arm around supper time), Burning (in her throat around suppertime) Severity: Moderate Improves with: Reports: Other (time) Worsens with: Reports: Other (unknown) Context: Reports: Other (See HPI) Associated Symptoms: Reports: Diaphoresis (at around 11 pm tonight), Weakness (generalized weakness is her only residual sx now. ). 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: Other (see below) (none) - Related Data Allergies Allergy/AdvReac Type Severity Reaction Status Date / Time No Known Allergies Allergy Verified 01/25/20 11:07 Home Meds: Home Meds Aspirin [Children's Aspirin] 1 tab PO DAILY 07/24/14 [History] Gabapentin [Neurontin] 600 mg PO BEDTIME 07/24/14 [History] HCTZ/Triamterene [Maxzide 25-37.5 MG] 0.5 tab PO DAILY 07/24/14 [History] Levothyroxine [Synthroid] 50 mcg PO DAILY 07/24/14 [History] atenoloL [Tenormin] 50 mg PO DAILY 01/25/20 [History] Acetaminophen [Tylenol Extra Strength] 1,000 mg PO TID #200 tablet 01/29/20 [Rx] Furosemide 20 mg PO DAILY 01/05/21 [History] predniSONE [Prednisone] 40 mg PO DAILY 01/05/21 [History] Past Medical History - Past Health History Medical/Surgical History: Denies Medical/Surgical History HEENT History: Reports: Cataract, Hard of Hearing Cardiovascular History: Reports: Hypertension Gastrointestinal History: Reports: Other (See Below) Other Gastrointestinal History: colon cancer 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: Musculoskeletal History: Reports: Back Pain, Chronic, Other (See Below) Other Musculoskeletal History: left knee pain, restless legs Endocrine/Metabolic History: Reports: Hypothyroidism Oncologic (Cancer) History: Reports: Colon - Infectious Disease History Infectious Disease History: Reports: Chicken Pox, Measles - Past Surgical History HEENT Surgical History: Reports: Cataract Surgery Cardiovascular Surgical History: Reports: None GI Surgical History: Reports: Appendectomy, Colon, Colonoscopy, Other (See Below) Other GI Surgeries/Procedures: partial colectomy Endocrine Surgical History: Reports: None Musculoskeletal Surgical History: Reports: None Social & Family History - Family History Family Medical History: No Pertinent Family History - Tobacco Use Tobacco Use Status *Q: Former Tobacco User Used Tobacco, but Quit: Yes Month/Year Tobacco Last Used: 10/1964 - Caffeine Use Caffeine Use: Reports: None - Recreational Drug Use Recreational Drug Use: No ED ROS GENERAL - Review of Systems Review Of Systems: See Below Constitutional: Reports: Weakness (generalized weakness persists) HEENT: Reports: No Symptoms Respiratory: Reports: No Symptoms Cardiovascular: Reports: No Symptoms GI/Abdominal: Reports: No Symptoms : Reports: No Symptoms Musculoskeletal: Reports: No Symptoms Skin: Reports: Diaphoresis (at 11 pm when she awoke, gone now.) Neurological: Reports: No Symptoms ED EXAM, GENERAL - Physical Exam Exam: See Below Exam Limited By: No Limitations General Appearance: Alert, WD/WN, No Apparent Distress Eye Exam: Bilateral Eye: Normal Inspection Ears: Normal External Exam, Normal Canal, Hearing Loss Ear Exam: Bilateral Ear: Auricle Normal, Canal Normal Nose: Normal Inspection, No Blood Throat/Mouth: Normal Inspection, Normal Lips, Normal Oropharynx, Normal Voice, No Airway Compromise Head: Atraumatic, Normocephalic Neck: Normal Inspection Respiratory/Chest: No Respiratory Distress, Lungs Clear, Normal Breath Sounds, No Accessory Muscle Use Cardiovascular: Regular Rate, Rhythm, No Edema, Bradycardia GI/Abdominal: Normal Bowel Sounds, Soft, Non-Tender, No Distention Back Exam: Normal Inspection. No: CVA Tenderness (R), CVA Tenderness (L) Extremities: Normal Inspection, Normal Range of Motion, Non-Tender, No Pedal Edema. No: Pedal Edema Neurological: Alert, Oriented, CN II-XII Intact, Normal Cognition, No Motor/Sensory Deficits Psychiatric: Normal Affect, Normal Mood Skin Exam: Warm, Dry, Intact, Normal Color, No Rash #1 Interpretation EKG Date: 01/05/21 Time: 01:00 Rhythm: NSR Rate (Beats/Min): 50 [place]: LAD-Left [place] Deviation P-Wave: Present QRS: Normal ST-T: Normal QT: Normal Comparison: NA - No Prior EKG (inverted or flat T waves in anterior leads, III, and AVF) Course - Vital Signs Text/Narrative:: Dr. Mckeon called @ 0150h Last Recorded V/S: Last Vital Signs Temp 35.6 C L 01/05/21 00:22 Pulse 61 01/05/21 00:22 Resp 16 01/05/21 00:22 BP 157/64 H 01/05/21 00:22 Pulse Ox 96 01/05/21 00:22 - Orders/Labs/Meds Orders: Active Orders 24 hr Category Date Time Status Cardiac Monitoring [RC] .As Directed Care 01/05/21 00:51 Active EKG Documentation Completion [RC] ASDIRECTED Care 01/05/21 00:51 Active Heparin Sodium/D5W [Heparin 25,000 Units in D5W 500 ML] Med 01/05/21 01:45 Ordered 25,000 units in 500 ml IV TITRATE Sodium Chloride 0.9% with KCl 20 mEq @ 150 mL/Hr (1000 Med 01/05/21 01:45 Ordered mL) NS + KCl 20mEq/L [Normal Saline with 20 mEq KCl] 1,000 ml IV ASDIRECTED EKG 12 Lead [EK] Routine Ther 01/05/21 00:51 Ordered Medication Orders Potassium Chloride/Sodium Chloride (Normal Saline With 20 Meq Kcl) 1,000 mls @ 150 mls/hr IV ASDIRECTED ISIS Heparin Sodium/Dextrose (Heparin 25,000 Units In D5w 500 Ml) 25,000 units in 500 mls @ 20 mls/hr IV TITRATE ISIS Labs: Laboratory Tests 01/05/21 01/05/21 01/05/21 Range/Units 00:55 00:55 00:55 WBC 11.8 H (4.5-11.0) K/uL RBC 4.33 (3.30-5.50) M/uL Hgb 13.0 (12.0-15.0) g/dL Hct 39.8 (36.0-48.0) % MCV 92 (80-98) fL MCH 30 (27-31) pg MCHC 33 (32-36) % Plt Count 248 (150-400) K/uL Sodium 144 (140-148) mmol/L Potassium 3.3 L (3.6-5.2) mmol/L Chloride 102 (100-108) mmol/L Carbon Dioxide 29 (21-32) mmol/L Anion Gap 16.3 H (5.0-14.0) mmol/L BUN 28 H (7-18) mg/dL Creatinine 1.8 H (0.6-1.0) mg/dL Est Cr Clr Drug Dosing 17.53 mL/min Estimated GFR (MDRD) 26 L (>60) Glucose 164 H (74-106) mg/dL Calcium 9.0 (8.5-10.1) mg/dL Magnesium (1.8-2.4) mg/dL Troponin I 7.690 H* (0.000-0.056) ng/mL TSH, Ultra Sensitive 0.921 (0.358-3.740) uIU/mL Urine Color (YELLOW) Urine Appearance (CLEAR) Urine pH (5.0-8.0) Ur Specific Sabina (1.008-1.030) Urine Protein (NEGATIVE) mg/dL Urine Glucose (UA) (NEGATIVE) mg/dL Urine Ketones (NEGATIVE) mg/dL Urine Occult Blood (NEGATIVE) Urine Nitrite (NEGATIVE) Urine Bilirubin (NEGATIVE) Urine Urobilinogen (0.2-1.0) EU/dL Ur Leukocyte Esterase (NEGATIVE) Urine RBC (0-5) Urine WBC (0-5) Ur Epithelial Cells Amorphous Sediment Urine Bacteria Urine Mucus 01/05/21 01/05/21 Range/Units 01:19 01:37 WBC (4.5-11.0) K/uL RBC (3.30-5.50) M/uL Hgb (12.0-15.0) g/dL Hct (36.0-48.0) % MCV (80-98) fL MCH (27-31) pg MCHC (32-36) % Plt Count (150-400) K/uL Sodium (140-148) mmol/L Potassium (3.6-5.2) mmol/L Chloride (100-108) mmol/L Carbon Dioxide (21-32) mmol/L Anion Gap (5.0-14.0) mmol/L BUN (7-18) mg/dL Creatinine (0.6-1.0) mg/dL Est Cr Clr Drug Dosing mL/min Estimated GFR (MDRD) (>60) Glucose (74-106) mg/dL Calcium (8.5-10.1) mg/dL Magnesium 2.1 (1.8-2.4) mg/dL Troponin I (0.000-0.056) ng/mL TSH, Ultra Sensitive (0.358-3.740) uIU/mL Urine Color Yellow (YELLOW) Urine Appearance Slightly cloudy A (CLEAR) Urine pH 7.0 (5.0-8.0) Ur Specific Sabina 1.020 (1.008-1.030) Urine Protein Negative (NEGATIVE) mg/dL Urine Glucose (UA) Negative (NEGATIVE) mg/dL Urine Ketones Negative (NEGATIVE) mg/dL Urine Occult Blood Negative (NEGATIVE) Urine Nitrite Negative (NEGATIVE) Urine Bilirubin Negative (NEGATIVE) Urine Urobilinogen 0.2 (0.2-1.0) EU/dL Ur Leukocyte Esterase Negative (NEGATIVE) Urine RBC 0-5 (0-5) Urine WBC 5-10 H (0-5) Ur Epithelial Cells Few Amorphous Sediment Not seen Urine Bacteria Many Urine Mucus Not seen Meds: Medications Generic Name Dose Route Start Last Admin Trade Name Freq PRN Reason Stop Dose Admin Potassium Chloride/Sodium Chloride 1,000 mls @ 150 mls/hr 01/05/21 01:45 Normal Saline With 20 Meq Kcl IV ASDIRECTED [facility] Heparin Sodium/Dextrose 25,000 units in 500 mls @ 20 mls/hr 01/05/21 01:45 Heparin 25,000 Units In D5w 500 Ml IV TITRATE [facility] 1,000 UNITS/HR Discontinued Medications Generic Name Dose Route Start Last Admin Trade Name Freq PRN Reason Stop Dose Admin Aspirin 324 mg 01/05/21 01:38 Aspirin 81 Mg Tab.Chew PO 01/05/21 01:39 ONETIME ONE Heparin Sodium (Porcine) 4,000 units 01/05/21 01:41 Heparin Sodium 5,000 Units/Ml Vial IVPUSH 01/05/21 01:42 ONETIME ONE Potassium Chloride 20 meq 01/05/21 01:37 Potassium Chloride 20 Meq Tab.Er PO 01/05/21 01:38 ONETIME ONE Ticagrelor 180 mg 01/05/21 01:41 Ticagrelor 90 Mg Tab PO 01/05/21 01:42 ONETIME ONE Departure - Departure Time of Disposition: 02:00 Disposition: Admitted As Inpatient 67 Condition: Serious Clinical Impression: Non-STEMI (non-ST elevated myocardial infarction), Hypokalemia - Discharge Information *PRESCRIPTION DRUG MONITORING PROGRAM REVIEWED*: Not Applicable *COPY OF PRESCRIPTION DRUG MONITORING REPORT IN PATIENT CONNER: Not Applicable Referrals: PCP,None [Primary Care Provider] - Forms: ED Department Discharge Sepsis Event Note (ED) - Evaluation Sepsis Screening Result: No Definite Risk - Focused Exam Vital Signs: Vital Signs Temp Pulse Resp BP Pulse Ox 01/05/21 00:22 35.6 C L 61 16 157/64 H 96 - My Orders Last 24 Hours: My Active Orders 01/05/21 00:51 Cardiac Monitoring [RC] .As Directed EKG Documentation Completion [RC] ASDIRECTED EKG 12 Lead [EK] Routine 01/05/21 01:45 Heparin Sodium/D5W [Heparin 25,000 Units in D5W 500 ML] 25,000 units in 500 ml IV TITRATE Sodium Chloride 0.9% with KCl 20 mEq @ 150 mL/Hr (1000 mL) NS + KCl 20mEq/L [Normal Saline with 20 mEq KCl] 1,000 ml IV ASDIRECTED - Assessment/Plan Last 24 Hours: My Active Orders 01/05/21 00:51 Cardiac Monitoring [RC] .As Directed EKG Documentation Completion [RC] ASDIRECTED EKG 12 Lead [EK] Routine 01/05/21 01:45 Heparin Sodium/D5W [Heparin 25,000 Units in D5W 500 ML] 25,000 units in 500 ml IV TITRATE Sodium Chloride 0.9% with KCl 20 mEq @ 150 mL/Hr (1000 mL) NS + KCl 20mEq/L [Normal Saline with 20 mEq KCl] 1,000 ml IV ASDIRECTED
[2021-01-05] MEDS ORDERED: Potassium Chloride 20 MEQ Tab.ER PO ONE (01:37)
[2021-01-05] MEDS ORDERED: Aspirin 81 MG Tab.Chew PO ONE (01:38)
[2021-01-05] MEDS ORDERED: Ticagrelor 90 MG Tab PO ONE (01:41)
[2021-01-05] MEDS ORDERED: Heparin Sodium 5,000 Units/ML Vial IVPUSH ONE (01:41)
[2021-01-05] MEDS: NS + KCl 20mEq/L 1,000 ML IV SCH ×2 (01:47→08:29)
[2021-01-05] MEDS: Heparin Sodium/D5W 25,000 UNITS/500 ML BAG IV SCH (02:19)
[2021-01-05] MEDS ORDERED: Metoprolol Tartrate 25 MG Tab PO SCH (02:30)
[2021-01-05] MEDS ORDERED: Famotidine 20 MG Tab PO ONE ×2 (03:42→16:00)
--- NOTE | 2021-01-05 04:51 | HP ---
IDENTIFYING DATA: Lucila Helm is an 89-year-old female from [facility] Dwelling in [place]. CHIEF COMPLAINT: Chest pain. HISTORY OF PRESENT ILLNESS: Elderly female without a pre-existing history of known cardiac disease. Has a recognized history of essential hypertension with pharmacologic therapy. She reports approximately 1-1/2 days prior to admission she had a vague discomfort or aching in the neck and shoulders, which resolved spontaneously the evening of presentation. In the evening hours, she developed aching in the shoulders bilaterally with burning sensation in throat. Denied diaphoresis, palpitation, shortness of breath, or dizziness. She retired to bed and woke up approximately 3 to 4 hours later with profuse diaphoresis and mild aching in the left proximal arm. She was transferred to the emergency room for evaluation and had resolution of symptoms prior to arrival, now feeling well. Evaluation subsequently suggested the recent acute myocardial infarction with elevated cardiac enzymes. She has a remote history of tobacco use, having discontinued 40 years ago. Lipid status is normal by the patient's verbal report. No history of diabetes, stroke, stroke-like episodes, or peripheral vascular disease. She denies palpitations or recent decline in exercise tolerance. PAST MEDICAL HISTORY: Previous surgeries include appendectomy, hysterectomy, ORIF of a right ankle fracture, and bilateral cataract extractions in the remote past. She has a known history of hypertension as well as chronic skeletal low back pain, hypothyroidism, and restless legs. HABITS: Nonsmoker of greater than 40 years time. No routine use of caffeinated beverages. Rare use of alcohol in social settings. IMMUNIZATIONS: Has received her COVID vaccine series. States she generally does not receive influenza vaccines. ALLERGIES: NONE NOTED. CURRENT MEDICATIONS: Aspirin 81 mg daily, gabapentin 600 mg at h.s., triamterene with hydrochlorothiazide 37.5/25 mg 1/2 tablet daily, levothyroxine 50 mcg daily, atenolol 50 mg daily, acetaminophen 1000 mg t.i.d. for chronic back pain, furosemide 20 mg daily, prednisone 40 mg daily. SOCIAL HISTORY: She is , residing independently in her senior apartment. She does have a cleaning personnel assist with household maintenance. Prepares her own meals. Continues to drive and performs ADLs independently. She has ambulatory impairment secondary to her chronic low back disease. Therefore, generally ambulates with use of a walker or cane. No recent falls reported. However, her nearest next of kin is her son, currently residing in [place], [place]. FAMILY HISTORY: Denies familial history of recent COVID disease or noted exposure. She reports she may have had COVID infection in July with a 4- to 5-day history of mild acute respiratory symptoms. Has since received her COVID vaccination. REVIEW OF SYSTEMS: NEUROLOGIC: No history of stroke, seizures, focal weakness, or paresthesias. Does have corrective lenses with previous cataract exposure and noted hearing loss with use of bilateral hearing aids. CARDIAC: As above. No current palpitations at rest, dyspnea, or ongoing angina-like pain. RESPIRATORY: Denies asthma, emphysema, tuberculosis, recent URIs, cough, or sputum production. GASTROINTESTINAL: Intermittent dyspepsia is managed with daily use of famotidine in the evening and occasional use of calcium antacids. No history of hepatitis, jaundice, or bowel changes. 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 She is seen by [facility] on a 6-month basis. MUSCULOSKELETAL: Chronic low back pain, right ankle stiffness secondary to remote injury requiring surgical repair. Mild arthralgias of the large and small joints with regular use of acetaminophen. PHYSICAL EXAMINATION: GENERAL: Appearance is that of an elderly female, appearing younger than stated age of 89 years, now in no acute distress. VITAL SIGNS: Initial vitals, temperature 35.6 degrees centigrade, pulse rate 61, respiratory rate 16, blood pressure 157/64, and O2 sats 96% on room air. HEENT: Hearing is diminished. Canals and TMs are normal. Status post cataract extraction. Sclerae are anicteric. No facial asymmetries. No oropharyngeal lesions. NECK: No adenopathy, thyromegaly, or JVD. Brisk carotid pulses. No bruits. LUNGS: Symmetrical, clear, resonant, non-tachypneic. HEART: Regular sinus rhythm by cardiac monitoring. No murmurs or gallops noted. A 12-lead EKG reveals borderline sinus bradycardia, flattening of the T-waves, and T-wave inversion in the inferior leads, suggests recent infarctive changes. ABDOMEN: Soft, nontender, nondistended. No organomegaly. Active sounds. Good femoral pulses. No abdominal bruits or CVA pain. EXTREMITIES: Chronic stiffness at the right ankle. Mild pitting edema at the ankles. Arterial pulses are intact. Non-diaphoretic. No venous stasis changes. LABORATORY DATA: On admission, WBC 11.8, hemoglobin 13, platelet count 248,000. Sodium 144, potassium 3.3, BUN 28, creatinine 1.8 with a GFR of 26, glucose 164 in a nonfasting state. Troponin elevated at 7.7, TSH 0.92. Urinalysis, negative dipstick. Magnesium 2.1. IMPRESSIONS: 1. Transient episode of angina-like pain with elevated troponin suggesting [id number] myocardial infarction. 2. History of hypertension. 3. Chronic degenerative lumbar back disease. 4. Hypothyroidism. 5. Restless leg presentation. PLAN: The patient will be admitted to the ICU for supportive care. Heparin infusion has been initiated. We will continue with cardiac monitoring, provide p.r.n. sublingual nitroglycerin, and we will switch from atenolol to metoprolol beta-reilly therapy as well as initiating clopidogrel, atorvastatin, and lisinopril therapies. Followup troponin in 6 hours' time is requested. We will allow limited activity with standby assistance of staff including use of bathroom and up in chair as tolerated. Cardiac diet is initiated. The patient has indicated she does not desire referral for interventional, diagnostic, and therapeutic treatment provided by [facility]. She desires more conservative approach with pharmacologic management at her local [facility]. She does understand the risk of progressive cardiac disease and deterioration in medical condition could potentially occur leading to or cardiorespiratory collapse. She notes on healthcare directive, she has indicated she does not desire CPR or aggressive resuscitative efforts, unsure of respiratory support in the event of need for short-term ventilatory support. She has received her COVID vaccination. No evidence of active respiratory disease is noted at the current time. She will be transferred to the intensive care unit for ongoing monitoring and supportive care. Ashkan Mckeon MD /[id number]
[2021-01-05] MEDS: Nitroglycerin 0.4 MG Tab.SL SL PRN ×2 (05:05→05:37)
[2021-01-05] MEDS ORDERED: Morphine 2 MG/ML SYRINGE ONE ×2 (05:23→05:35)
[2021-01-05] MEDS: Morphine 2 MG/ML SYRINGE IVPUSH PRN ×2 (05:25→09:48)
[2021-01-05] MEDS ORDERED: Nitroglycerin/D5W 25 MG/250 ML BOTTLE IV SCH (06:00)
[2021-01-05] MEDS: Furosemide 20 MG Tab PO SCH (08:02)
[2021-01-05] MEDS: Levothyroxine 50 MCG Tab PO SCH (08:02)
[2021-01-05] MEDS: Metoprolol Tartrate 25 MG Tab PO SCH ×2 (08:04→21:06)
[2021-01-05] MEDS: Clopidogrel 75 MG Tab PO SCH (08:14)
[2021-01-05] MEDS: Aspirin 81 MG Tab.Chew PO SCH (08:14)
[2021-01-05] MEDS: Hydrochlorothiazide/Triamterene 25-37.5 Tab PO SCH (08:14)
[2021-01-05] MEDS: predniSONE 20 MG Tab PO SCH (08:16)
[2021-01-05] MEDS: Lisinopril 2.5 MG Tab PO SCH (08:16)
[2021-01-05] MEDS: Acetaminophen 500 MG Tab PO SCH ×3 (08:17→21:07)
--- NOTE | 2021-01-05 16:13 | PCM.PN ---
- General Info Date of Service: 01/05/21 Subjective Update: Ms. Helm is an 89-year-old woman who was admitted through the emergency department earlier this morning with a history of stuttering chest pain and evidence of non-ST segment elevation myocardial infarction. She has had symptoms of chest pain on and off over the past few days but it became significantly worse last night and she presented to the emergency department. EKG showed no evidence of ST segment elevation but she did have some flipped T waves. Troponin level was significantly elevated. Pain resolved in the emergency department but has reoccurred since admission and she was started on IV nitroglycerin. Discussion was held with her by Dr. Sánchez and Drs. Mckeon concerning referral to a tertiary care center for probable evaluation and int ervention. She does not want further testing or aggressive interventions. She is willing to accept medical therapy. - Review of Systems General: Reports: Weakness, Fatigue. Denies: Fever, Chills Pulmonary: Reports: No Symptoms Cardiovascular: Reports: No Symptoms Gastrointestinal: Reports: No Symptoms Genitourinary: Reports: No Symptoms - Patient Data Vitals - Most Recent: Last Vital Signs Temp 98.2 F 01/05/21 08:00 Pulse 56 L 01/05/21 11:00 Resp 19 01/05/21 11:00 BP 146/74 H 01/05/21 11:00 Pulse Ox 96 01/05/21 11:00 Weight - Most Recent: 181 lb 8 oz I&O - Last 24 Hours: Intake & Output 01/05/21 01/05/21 01/05/21 06:59 14:59 22:59 Intake Total 588 Output Total 100 Balance 588 -100 Lab Results Last 24 Hours: Laboratory Results - last 24 hr 01/05/21 01/05/21 01/05/21 Range/Units 00:55 00:55 00:55 WBC 11.8 H (4.5-11.0) K/uL RBC 4.33 (3.30-5.50) M/uL Hgb 13.0 (12.0-15.0) g/dL Hct 39.8 (36.0-48.0) % MCV 92 (80-98) fL MCH 30 (27-31) pg MCHC 33 (32-36) % Plt Count 248 (150-400) K/uL PT INR APTT (27.0-36.0) sec Sodium 144 (140-148) mmol/L Potassium 3.3 L (3.6-5.2) mmol/L Chloride 102 (100-108) mmol/L Carbon Dioxide 29 (21-32) mmol/L Anion Gap 16.3 H (5.0-14.0) mmol/L BUN 28 H (7-18) mg/dL Creatinine 1.8 H (0.6-1.0) mg/dL Est Cr Clr Drug Dosing 17.53 mL/min Estimated GFR (MDRD) 26 L (>60) Glucose 164 H (74-106) mg/dL Calcium 9.0 (8.5-10.1) mg/dL Magnesium (1.8-2.4) mg/dL Troponin I 7.690 H* (0.000-0.056) ng/mL Triglycerides (15-150) mg/dL Cholesterol (0-200) mg/dL LDL Cholesterol Direct (0-100) mg/dL HDL Cholesterol (40-60) mg/dL TSH, Ultra Sensitive 0.921 (0.358-3.740) uIU/mL Urine Color (YELLOW) Urine Appearance (CLEAR) Urine pH (5.0-8.0) Ur Specific Bath (1.008-1.030) Urine Protein (NEGATIVE) mg/dL Urine Glucose (UA) (NEGATIVE) mg/dL Urine Ketones (NEGATIVE) mg/dL Urine Occult Blood (NEGATIVE) Urine Nitrite (NEGATIVE) Urine Bilirubin (NEGATIVE) Urine Urobilinogen (0.2-1.0) EU/dL Ur Leukocyte Esterase (NEGATIVE) Urine RBC (0-5) Urine WBC (0-5) Ur Epithelial Cells Amorphous Sediment Urine Bacteria Urine Mucus 01/05/21 01/05/21 01/05/21 Range/Units 01:19 01:37 03:13 WBC (4.5-11.0) K/uL RBC (3.30-5.50) M/uL Hgb (12.0-15.0) g/dL Hct (36.0-48.0) % MCV (80-98) fL MCH (27-31) pg MCHC (32-36) % Plt Count (150-400) K/uL PT Cancelled INR Cancelled APTT (27.0-36.0) sec Sodium (140-148) mmol/L Potassium (3.6-5.2) mmol/L Chloride (100-108) mmol/L Carbon Dioxide (21-32) mmol/L Anion Gap (5.0-14.0) mmol/L BUN (7-18) mg/dL Creatinine (0.6-1.0) mg/dL Est Cr Clr Drug Dosing mL/min Estimated GFR (MDRD) (>60) Glucose (74-106) mg/dL Calcium (8.5-10.1) mg/dL Magnesium 2.1 (1.8-2.4) mg/dL Troponin I (0.000-0.056) ng/mL Triglycerides (15-150) mg/dL Cholesterol (0-200) mg/dL LDL Cholesterol Direct (0-100) mg/dL HDL Cholesterol (40-60) mg/dL TSH, Ultra Sensitive (0.358-3.740) uIU/mL Urine Color Yellow (YELLOW) Urine Appearance Slightly cloudy A (CLEAR) Urine pH 7.0 (5.0-8.0) Ur Specific Bath 1.020 (1.008-1.030) Urine Protein Negative (NEGATIVE) mg/dL Urine Glucose (UA) Negative (NEGATIVE) mg/dL Urine Ketones Negative (NEGATIVE) mg/dL Urine Occult Blood Negative (NEGATIVE) Urine Nitrite Negative (NEGATIVE) Urine Bilirubin Negative (NEGATIVE) Urine Urobilinogen 0.2 (0.2-1.0) EU/dL Ur Leukocyte Esterase Negative (NEGATIVE) Urine RBC 0-5 (0-5) Urine WBC 5-10 H (0-5) Ur Epithelial Cells Few Amorphous Sediment Not seen Urine Bacteria Many Urine Mucus Not seen 01/05/21 01/05/21 Range/Units 08:30 08:30 WBC (4.5-11.0) K/uL RBC (3.30-5.50) M/uL Hgb (12.0-15.0) g/dL Hct (36.0-48.0) % MCV (80-98) fL MCH (27-31) pg MCHC (32-36) % Plt Count (150-400) K/uL PT INR APTT 132.5 H* (27.0-36.0) sec Sodium (140-148) mmol/L Potassium (3.6-5.2) mmol/L Chloride (100-108) mmol/L Carbon Dioxide (21-32) mmol/L Anion Gap (5.0-14.0) mmol/L BUN (7-18) mg/dL Creatinine (0.6-1.0) mg/dL Est Cr Clr Drug Dosing mL/min Estimated GFR (MDRD) (>60) Glucose (74-106) mg/dL Calcium (8.5-10.1) mg/dL Magnesium (1.8-2.4) mg/dL Troponin I 15.488 H* (0.000-0.056) ng/mL Triglycerides 82 (15-150) mg/dL Cholesterol 188 (0-200) mg/dL LDL Cholesterol Direct 95 (0-100) mg/dL HDL Cholesterol 67 H (40-60) mg/dL TSH, Ultra Sensitive (0.358-3.740) uIU/mL Urine Color (YELLOW) Urine Appearance (CLEAR) Urine pH (5.0-8.0) Ur Specific Bath (1.008-1.030) Urine Protein (NEGATIVE) mg/dL Urine Glucose (UA) (NEGATIVE) mg/dL Urine Ketones (NEGATIVE) mg/dL Urine Occult Blood (NEGATIVE) Urine Nitrite (NEGATIVE) Urine Bilirubin (NEGATIVE) Urine Urobilinogen (0.2-1.0) EU/dL Ur Leukocyte Esterase (NEGATIVE) Urine RBC (0-5) Urine WBC (0-5) Ur Epithelial Cells Amorphous Sediment Urine Bacteria Urine Mucus Med Orders - Current: Current Medications Acetaminophen (Acetaminophen 500 Mg Tab) 1,000 mg PO TID [facility] Last Admin: 01/05/21 14:01 Dose: Not Given Documented by: Aspirin (Aspirin 81 Mg Tab.Chew) 81 mg PO DAILY [facility] Last Admin: 01/05/21 08:14 Dose: 81 mg Documented by: Atorvastatin Calcium (Atorvastatin 20 Mg Tab) 20 mg PO BEDTIME [facility] Clopidogrel Bisulfate (Clopidogrel 75 Mg Tab) 75 mg PO DAILY [facility] Last Admin: 01/05/21 08:14 Dose: 75 mg Documented by: Furosemide (Furosemide 20 Mg Tab) 20 mg PO DAILY [facility] Last Admin: 01/05/21 08:02 Dose: 20 mg Documented by: Gabapentin (Gabapentin 300 Mg Cap) 600 mg PO BEDTIME [facility] Heparin Sodium/Dextrose (Heparin 25,000 Units In D5w 500 Ml) 25,000 units in 500 mls @ 20 mls/hr IV TITRATE [facility]; Protocol Last Infusion: 01/05/21 11:19 Dose: 741.6 units/hr, 14.832 mls/hr Documented by: Nitroglycerin/Dextrose (Nitroglycerin 25 Mg/D5w 250 Ml) 25 mg in 250 mls @ 3 mls/hr IV TITRATE [facility]; Protocol Last Titration: 01/05/21 08:10 Dose: 15 mcg/min, 9 mls/hr Documented by: Levothyroxine Sodium (Levothyroxine 50 Mcg Tab) 50 mcg PO DAILY@0730 [facility] Last Admin: 01/05/21 08:02 Dose: 50 mcg Documented by: Lisinopril (Lisinopril 2.5 Mg Tab) 2.5 mg PO DAILY [facility] Last Admin: 01/05/21 08:16 Dose: 2.5 mg Documented by: Metoprolol Tartrate (Metoprolol Tartrate 25 Mg Tab) 25 mg PO BID [facility] Last Admin: 01/05/21 08:04 Dose: 25 mg Documented by: Morphine Sulfate (Morphine 2 Mg/Ml Syringe) 2 - 4 mg IVPUSH Q1H PRN PRN Reason: severe pain Last Admin: 01/05/21 09:48 Dose: 2 mg Documented by: Nitroglycerin (Nitroglycerin 0.4 Mg Tab.Sl) 0.4 mg SL Q5M PRN PRN Reason: Chest Pain Last Admin: 01/05/21 05:37 Dose: 0.4 mg Documented by: Prednisone (Prednisone 20 Mg Tab) 40 mg PO DAILY [facility] Last Admin: 01/05/21 08:16 Dose: 40 mg Documented by: Triamterene/Hydrochlorothiazide (Hydrochlorothiazide/Triamterene 25-37.5 Tab) 0.5 each PO DAILY [facility] Last Admin: 01/05/21 08:14 Dose: 0.5 each Documented by: Discontinued Medications Aspirin (Aspirin 81 Mg Tab.Chew) 324 mg PO ONETIME ONE Stop: 01/05/21 01:39 Last Admin: 01/05/21 01:47 Dose: 324 mg Documented by: Famotidine (Famotidine 20 Mg Tab) 20 mg PO ONETIME ONE Stop: 01/05/21 03:43 Last Admin: 01/05/21 05:04 Dose: Not Given Documented by: Famotidine (Famotidine 20 Mg Tab) 20 mg PO ONETIME ONE Stop: 01/05/21 16:01 Heparin Sodium (Porcine) (Heparin Sodium 5,000 Units/Ml Vial) 4,000 units IVPUSH ONETIME ONE Stop: 01/05/21 01:42 Last Admin: 01/05/21 02:18 Dose: 4,000 units Documented by: Potassium Chloride/Sodium Chloride (Normal Saline With 20 Meq Kcl) 1,000 mls @ 150 mls/hr IV ASDIRECTED [facility] Last Admin: 01/05/21 08:29 Dose: 150 mls/hr Documented by: Metoprolol Tartrate (Metoprolol Tartrate 25 Mg Tab) 25 mg PO Q12H [facility] Last Admin: 01/05/21 03:16 Dose: Not Given Documented by: Morphine Sulfate (Morphine 2 Mg/Ml Syringe) Confirm Administered Dose 2 mg .ROUTE .STK-MED ONE Stop: 01/05/21 05:24 Last Admin: 01/05/21 05:46 Dose: Not Given Documented by: Morphine Sulfate (Morphine 2 Mg/Ml Syringe) Confirm Administered Dose 2 mg .ROUTE .STK-MED ONE Stop: 01/05/21 05:36 Last Admin: 01/05/21 05:46 Dose: Not Given Documented by: Potassium Chloride (Potassium Chloride 20 Meq Tab.Er) 20 meq PO ONETIME ONE Stop: 01/05/21 01:38 Last Admin: 01/05/21 01:47 Dose: 20 meq Documented by: Ticagrelor (Ticagrelor 90 Mg Tab) 180 mg PO ONETIME ONE Stop: 01/05/21 01:42 Last Admin: 01/05/21 02:11 Dose: 180 mg Documented by: - Exam Quality Assessment: DVT Prophylaxis General: Alert, Oriented, Cooperative, Mild Distress Lungs: Clear to Auscultation, Normal Respiratory Effort Cardiovascular: Regular Rate, Regular Rhythm, No Murmurs GI/Abdominal Exam: Soft, Non-Tender, No Organomegaly, No Distention Extremities: Non-Tender, No Pedal Edema - Patient Data Lab Results Last 24 hrs: Laboratory Results - last 24 hr 01/05/21 01/05/21 01/05/21 Range/Units 00:55 00:55 00:55 WBC 11.8 H (4.5-11.0) K/uL RBC 4.33 (3.30-5.50) M/uL Hgb 13.0 (12.0-15.0) g/dL Hct 39.8 (36.0-48.0) % MCV 92 (80-98) fL MCH 30 (27-31) pg MCHC 33 (32-36) % Plt Count 248 (150-400) K/uL PT INR APTT (27.0-36.0) sec Sodium 144 (140-148) mmol/L Potassium 3.3 L (3.6-5.2) mmol/L Chloride 102 (100-108) mmol/L Carbon Dioxide 29 (21-32) mmol/L Anion Gap 16.3 H (5.0-14.0) mmol/L BUN 28 H (7-18) mg/dL Creatinine 1.8 H (0.6-1.0) mg/dL Est Cr Clr Drug Dosing 17.53 mL/min Estimated GFR (MDRD) 26 L (>60) Glucose 164 H (74-106) mg/dL Calcium 9.0 (8.5-10.1) mg/dL Magnesium (1.8-2.4) mg/dL Troponin I 7.690 H* (0.000-0.056) ng/mL Triglycerides (15-150) mg/dL Cholesterol (0-200) mg/dL LDL Cholesterol Direct (0-100) mg/dL HDL Cholesterol (40-60) mg/dL TSH, Ultra Sensitive 0.921 (0.358-3.740) uIU/mL Urine Color (YELLOW) Urine Appearance (CLEAR) Urine pH (5.0-8.0) Ur Specific Bath (1.008-1.030) Urine Protein (NEGATIVE) mg/dL Urine Glucose (UA) (NEGATIVE) mg/dL Urine Ketones (NEGATIVE) mg/dL Urine Occult Blood (NEGATIVE) Urine Nitrite (NEGATIVE) Urine Bilirubin (NEGATIVE) Urine Urobilinogen (0.2-1.0) EU/dL Ur Leukocyte Esterase (NEGATIVE) Urine RBC (0-5) Urine WBC (0-5) Ur Epithelial Cells Amorphous Sediment Urine Bacteria Urine Mucus 01/05/21 01/05/21 01/05/21 Range/Units 01:19 01:37 03:13 WBC (4.5-11.0) K/uL RBC (3.30-5.50) M/uL Hgb (12.0-15.0) g/dL Hct (36.0-48.0) % MCV (80-98) fL MCH (27-31) pg MCHC (32-36) % Plt Count (150-400) K/uL PT Cancelled INR Cancelled APTT (27.0-36.0) sec Sodium (140-148) mmol/L Potassium (3.6-5.2) mmol/L Chloride (100-108) mmol/L Carbon Dioxide (21-32) mmol/L Anion Gap (5.0-14.0) mmol/L BUN (7-18) mg/dL Creatinine (0.6-1.0) mg/dL Est Cr Clr Drug Dosing mL/min Estimated GFR (MDRD) (>60) Glucose (74-106) mg/dL Calcium (8.5-10.1) mg/dL Magnesium 2.1 (1.8-2.4) mg/dL Troponin I (0.000-0.056) ng/mL Triglycerides (15-150) mg/dL Cholesterol (0-200) mg/dL LDL Cholesterol Direct (0-100) mg/dL HDL Cholesterol (40-60) mg/dL TSH, Ultra Sensitive (0.358-3.740) uIU/mL Urine Color Yellow (YELLOW) Urine Appearance Slightly cloudy A (CLEAR) Urine pH 7.0 (5.0-8.0) Ur Specific Bath 1.020 (1.008-1.030) Urine Protein Negative (NEGATIVE) mg/dL Urine Glucose (UA) Negative (NEGATIVE) mg/dL Urine Ketones Negative (NEGATIVE) mg/dL Urine Occult Blood Negative (NEGATIVE) Urine Nitrite Negative (NEGATIVE) Urine Bilirubin Negative (NEGATIVE) Urine Urobilinogen 0.2 (0.2-1.0) EU/dL Ur Leukocyte Esterase Negative (NEGATIVE) Urine RBC 0-5 (0-5) Urine WBC 5-10 H (0-5) Ur Epithelial Cells Few Amorphous Sediment Not seen Urine Bacteria Many Urine Mucus Not seen 01/05/21 01/05/21 Range/Units 08:30 08:30 WBC (4.5-11.0) K/uL RBC (3.30-5.50) M/uL Hgb (12.0-15.0) g/dL Hct (36.0-48.0) % MCV (80-98) fL MCH (27-31) pg MCHC (32-36) % Plt Count (150-400) K/uL PT INR APTT 132.5 H* (27.0-36.0) sec Sodium (140-148) mmol/L Potassium (3.6-5.2) mmol/L Chloride (100-108) mmol/L Carbon Dioxide (21-32) mmol/L Anion Gap (5.0-14.0) mmol/L BUN (7-18) mg/dL Creatinine (0.6-1.0) mg/dL Est Cr Clr Drug Dosing mL/min Estimated GFR (MDRD) (>60) Glucose (74-106) mg/dL Calcium (8.5-10.1) mg/dL Magnesium (1.8-2.4) mg/dL Troponin I 15.488 H* (0.000-0.056) ng/mL Triglycerides 82 (15-150) mg/dL Cholesterol 188 (0-200) mg/dL LDL Cholesterol Direct 95 (0-100) mg/dL HDL Cholesterol 67 H (40-60) mg/dL TSH, Ultra Sensitive (0.358-3.740) uIU/mL Urine Color (YELLOW) Urine Appearance (CLEAR) Urine pH (5.0-8.0) Ur Specific Bath (1.008-1.030) Urine Protein (NEGATIVE) mg/dL Urine Glucose (UA) (NEGATIVE) mg/dL Urine Ketones (NEGATIVE) mg/dL Urine Occult Blood (NEGATIVE) Urine Nitrite (NEGATIVE) Urine Bilirubin (NEGATIVE) Urine Urobilinogen (0.2-1.0) EU/dL Ur Leukocyte Esterase (NEGATIVE) Urine RBC (0-5) Urine WBC (0-5) Ur Epithelial Cells Amorphous Sediment Urine Bacteria Urine Mucus Result Diagrams: 01/05/21 00:55 01/05/21 00:55 Sepsis Event Note - Evaluation Sepsis Screening Result: No Definite Risk - Focused Exam Vital Signs: Vital Signs Temp Pulse Pulse Resp BP BP Pulse Ox 01/05/21 11:00 56 L 19 146/74 H 96 01/05/21 10:00 55 L 20 165/84 H 99 01/05/21 09:00 56 L 20 156/91 H 96 01/05/21 08:16 157/79 H 01/05/21 08:04 52 L 146/80 H 01/05/21 08:00 98.2 F 52 L 16 146/80 H 99 01/05/21 07:00 59 L 14 157/87 H 98 01/05/21 06:00 20 137/72 98 01/05/21 05:45 16 130/70 99 01/05/21 05:37 149/83 H 01/05/21 05:10 13 139/81 99 01/05/21 05:05 169/91 H 01/05/21 05:00 18 156/78 H 96 01/05/21 04:17 16 152/84 H 96 - Problem List Review Problem List Initiated/Reviewed/Updated: Yes - My Orders Last 24 Hours: My Active Orders 01/05/21 09:52 Convert IV to Saline Lock [OM.PC] Routine 01/05/21 11:13 Code Status [Resuscitation Status] Stat 01/05/21 17:30 PTT,PARTIAL THROMBOPLSTIN TIME [COAG] Routine 01/06/21 05:00 BASIC METABOLIC PANEL,BMP [CHEM] Timed TROPONIN I [CHEM] Timed - Plan Plan:: ASSESSMENT AND PLAN NON-ST SEGMENT ELEVATION MYOCARDIAL INFARCTION-evaded troponin on admission which has increased significantly since then and is now at 15. She did experience recurrent chest pain after admission and was started on IV nitroglycerin with good control of her pain. She remains firm in her decision not to pursue aggressive intervention or evaluation and does not want referral to a tertiary care center for cardiology evaluation. She will accept medical therapy but nothing beyond that. -Continue IV heparin for 48 hours -Continue Plavix -Continue daily aspirin -Continue IV nitroglycerin for management of chest pain -Continue lisinopril and metoprolol -Continue Lipitor HYPERTENSION-blood pressure has been stable with addition of new medications MAINTENANCE ISSUES -DVT prophylaxis; current therapy with IV heparin should provide adequate DVT prophylaxis -GI prophylaxis; not indicated -Angela catheter; not indicated -Nutrition; cardiac diet -Nicotine dependence; not required CODE STATUS-DNR/DNI, I did review this with her. At the time of admission she requested DNR status but was not sure about intubation. When we discuss it further this morning she does not want resuscitation or intubation. ADMISSION STATUS-patient will be admitted to inpatient status, expect at least a 2 night hospital stay for evaluation and management of problems as outlined above. At the time of this admission I do not reasonably expected evaluation and management of this problem will require more than a 96 hour hospital stay. DISPOSITION-anticipate discharge to home after the hospital stay.
[2021-01-05] MEDS: Heparin Sodium 5,000 Units/ML Vial IVPUSH ONE (18:33)
[2021-01-05] MEDS: atorvaSTATin 20 MG Tab PO SCH (21:07)
[2021-01-05] MEDS: Gabapentin 300 MG Cap PO SCH (21:07)
[2021-01-06] MEDS: Aspirin 81 MG Tab.Chew PO SCH (08:10)
[2021-01-06] MEDS: Hydrochlorothiazide/Triamterene 25-37.5 Tab PO SCH (08:10)
[2021-01-06] MEDS: Lisinopril 2.5 MG Tab PO SCH (08:10)
[2021-01-06] MEDS: Clopidogrel 75 MG Tab PO SCH (08:11)
[2021-01-06] MEDS: Acetaminophen 500 MG Tab PO SCH ×3 (08:11→21:06)
[2021-01-06] MEDS: Levothyroxine 50 MCG Tab PO SCH (08:11)
[2021-01-06] MEDS: Metoprolol Tartrate 25 MG Tab PO SCH ×3 (08:11→21:06)
[2021-01-06] MEDS: predniSONE 20 MG Tab PO SCH (08:11)
[2021-01-06] MEDS: Furosemide 20 MG Tab PO SCH (08:11)
[2021-01-06] MEDS ORDERED: Potassium Chloride 20 MEQ Tab.ER PO ONE ×2 (09:00→17:00)
[2021-01-06] MEDS: Heparin Sodium/D5W 25,000 UNITS/500 ML BAG IV SCH (09:41)
--- NOTE | 2021-01-06 12:11 | PCM.PN ---
- General Info Date of Service: 01/06/21 Subjective Update: Ms. Helm feels somewhat improved this morning, energy level is better as is her appetite. She really has had no symptoms of chest pain or pressure over the past 24 hours and has been tapered off of her IV nitroglycerin. Troponin level has improved from yesterday and she has remained hemodynamically stable. Other than somewhat low heart rate on current dose of metoprolol. Functional Status: Reports: Tolerating Diet, Urinating - Review of Systems General: Reports: Weakness, Fatigue. Denies: Fever, Chills Pulmonary: Reports: No Symptoms Cardiovascular: Reports: No Symptoms Gastrointestinal: Reports: No Symptoms - Patient Data Vitals - Most Recent: Last Vital Signs Temp 97.7 F 01/06/21 08:00 Pulse 54 L 01/06/21 11:00 Resp 12 01/06/21 11:00 BP 116/72 01/06/21 11:00 Pulse Ox 97 01/06/21 11:00 Weight - Most Recent: 181 lb 8 oz I&O - Last 24 Hours: Intake & Output 01/05/21 01/06/21 01/06/21 22:59 06:59 14:59 Intake Total 380 1095 Output Total 1625 225 500 Balance -1245 870 -500 Lab Results Last 24 Hours: Laboratory Results - last 24 hr 01/05/21 01/05/21 01/06/21 Range/Units 17:25 23:52 06:06 APTT 44.1 H 82.9 H (27.0-36.0) sec Sodium 142 (140-148) mmol/L Potassium 3.5 L (3.6-5.2) mmol/L Chloride 100 (100-108) mmol/L Carbon Dioxide 32 (21-32) mmol/L Anion Gap 13.5 (5.0-14.0) mmol/L BUN 23 H (7-18) mg/dL Creatinine 1.6 H (0.6-1.0) mg/dL Est Cr Clr Drug Dosing 19.71 mL/min Estimated GFR (MDRD) 30 L (>60) Glucose 112 H (74-106) mg/dL Calcium 8.9 (8.5-10.1) mg/dL Troponin I 9.028 H* (0.000-0.056) ng/mL 01/06/21 Range/Units 06:06 APTT 67.2 H (27.0-36.0) sec Sodium (140-148) mmol/L Potassium (3.6-5.2) mmol/L Chloride (100-108) mmol/L Carbon Dioxide (21-32) mmol/L Anion Gap (5.0-14.0) mmol/L BUN (7-18) mg/dL Creatinine (0.6-1.0) mg/dL Est Cr Clr Drug Dosing mL/min Estimated GFR (MDRD) (>60) Glucose (74-106) mg/dL Calcium (8.5-10.1) mg/dL Troponin I (0.000-0.056) ng/mL Med Orders - Current: Current Medications Acetaminophen (Acetaminophen 500 Mg Tab) 1,000 mg PO TID [facility] Last Admin: 01/06/21 08:11 Dose: 1,000 mg Documented by: Aspirin (Aspirin 81 Mg Tab.Chew) 81 mg PO DAILY [facility] Last Admin: 01/06/21 08:10 Dose: 81 mg Documented by: Atorvastatin Calcium (Atorvastatin 20 Mg Tab) 20 mg PO BEDTIME [facility] Last Admin: 01/05/21 21:07 Dose: 20 mg Documented by: Clopidogrel Bisulfate (Clopidogrel 75 Mg Tab) 75 mg PO DAILY [facility] Last Admin: 01/06/21 08:11 Dose: 75 mg Documented by: Furosemide (Furosemide 20 Mg Tab) 20 mg PO DAILY [facility] Last Admin: 01/06/21 08:11 Dose: 20 mg Documented by: Gabapentin (Gabapentin 300 Mg Cap) 600 mg PO BEDTIME [facility] Last Admin: 01/05/21 21:07 Dose: 600 mg Documented by: Heparin Sodium/Dextrose (Heparin 25,000 Units In D5w 500 Ml) 25,000 units in 500 mls @ 20 mls/hr IV TITRATE [facility]; Protocol Last Admin: 01/06/21 09:41 Dose: 720 units/hr, 14.4 mls/hr Documented by: Nitroglycerin/Dextrose (Nitroglycerin 25 Mg/D5w 250 Ml) 25 mg in 250 mls @ 3 mls/hr IV TITRATE [facility]; Protocol Last Titration: 01/06/21 04:10 Dose: 0 mcg/min, 0 mls/hr Documented by: Levothyroxine Sodium (Levothyroxine 50 Mcg Tab) 50 mcg PO DAILY@0730 [facility] Last Admin: 01/06/21 08:11 Dose: 50 mcg Documented by: Lisinopril (Lisinopril 2.5 Mg Tab) 2.5 mg PO DAILY [facility] Last Admin: 01/06/21 08:10 Dose: 2.5 mg Documented by: Metoprolol Tartrate (Metoprolol Tartrate 25 Mg Tab) 12.5 mg PO BID [facility] Last Admin: 01/06/21 09:45 Dose: Not Given Documented by: Morphine Sulfate (Morphine 2 Mg/Ml Syringe) 2 - 4 mg IVPUSH Q1H PRN PRN Reason: severe pain Last Admin: 01/05/21 09:48 Dose: 2 mg Documented by: Nitroglycerin (Nitroglycerin 0.4 Mg Tab.Sl) 0.4 mg SL Q5M PRN PRN Reason: Chest Pain Last Admin: 01/05/21 05:37 Dose: 0.4 mg Documented by: Potassium Chloride (Potassium Chloride 20 Meq Tab.Er) 40 meq PO ONETIME ONE Stop: 01/06/21 17:01 Prednisone (Prednisone 20 Mg Tab) 40 mg PO DAILY [facility] Last Admin: 01/06/21 08:11 Dose: 40 mg Documented by: Triamterene/Hydrochlorothiazide (Hydrochlorothiazide/Triamterene 25-37.5 Tab) 0.5 each PO DAILY [facility] Last Admin: 01/06/21 08:10 Dose: 0.5 each Documented by: Discontinued Medications Aspirin (Aspirin 81 Mg Tab.Chew) 324 mg PO ONETIME ONE Stop: 01/05/21 01:39 Last Admin: 01/05/21 01:47 Dose: 324 mg Documented by: Famotidine (Famotidine 20 Mg Tab) 20 mg PO ONETIME ONE Stop: 01/05/21 03:43 Last Admin: 01/05/21 05:04 Dose: Not Given Documented by: Famotidine (Famotidine 20 Mg Tab) 20 mg PO ONETIME ONE Stop: 01/05/21 16:01 Last Admin: 01/05/21 16:55 Dose: 20 mg Documented by: Heparin Sodium (Porcine) (Heparin Sodium 5,000 Units/Ml Vial) 4,000 units IVPUSH ONETIME ONE Stop: 01/05/21 01:42 Last Admin: 01/05/21 02:18 Dose: 4,000 units Documented by: Heparin Sodium (Porcine) (Heparin Sodium 5,000 Units/Ml Vial) 1,000 units IVPUSH BOLUS ONE Stop: 01/05/21 18:18 Last Admin: 01/05/21 18:33 Dose: 1,000 units Documented by: Potassium Chloride/Sodium Chloride (Normal Saline With 20 Meq Kcl) 1,000 mls @ 150 mls/hr IV ASDIRECTED [facility] Last Admin: 01/05/21 08:29 Dose: 150 mls/hr Documented by: Metoprolol Tartrate (Metoprolol Tartrate 25 Mg Tab) 25 mg PO Q12H [facility] Last Admin: 01/05/21 03:16 Dose: Not Given Documented by: Metoprolol Tartrate (Metoprolol Tartrate 25 Mg Tab) 25 mg PO BID [facility] Last Admin: 01/06/21 08:11 Dose: 25 mg Documented by: Morphine Sulfate (Morphine 2 Mg/Ml Syringe) Confirm Administered Dose 2 mg .ROUTE .STK-MED ONE Stop: 01/05/21 05:24 Last Admin: 01/05/21 05:46 Dose: Not Given Documented by: Morphine Sulfate (Morphine 2 Mg/Ml Syringe) Confirm Administered Dose 2 mg .ROUTE .STK-MED ONE Stop: 01/05/21 05:36 Last Admin: 01/05/21 05:46 Dose: Not Given Documented by: Potassium Chloride (Potassium Chloride 20 Meq Tab.Er) 20 meq PO ONETIME ONE Stop: 01/05/21 01:38 Last Admin: 01/05/21 01:47 Dose: 20 meq Documented by: Potassium Chloride (Potassium Chloride 20 Meq Tab.Er) 40 meq PO ONETIME ONE Stop: 01/06/21 09:01 Last Admin: 01/06/21 09:45 Dose: 40 meq Documented by: Ticagrelor (Ticagrelor 90 Mg Tab) 180 mg PO ONETIME ONE Stop: 01/05/21 01:42 Last Admin: 01/05/21 02:11 Dose: 180 mg Documented by: - Exam Quality Assessment: DVT Prophylaxis General: Alert, Oriented, Cooperative, Mild Distress Lungs: Clear to Auscultation, Normal Respiratory Effort Cardiovascular: Regular Rate, Regular Rhythm, No Murmurs GI/Abdominal Exam: Soft, Non-Tender, No Organomegaly, No Distention Extremities: Non-Tender, No Pedal Edema - Patient Data Lab Results Last 24 hrs: Laboratory Results - last 24 hr 01/05/21 01/05/21 01/06/21 Range/Units 17:25 23:52 06:06 APTT 44.1 H 82.9 H (27.0-36.0) sec Sodium 142 (140-148) mmol/L Potassium 3.5 L (3.6-5.2) mmol/L Chloride 100 (100-108) mmol/L Carbon Dioxide 32 (21-32) mmol/L Anion Gap 13.5 (5.0-14.0) mmol/L BUN 23 H (7-18) mg/dL Creatinine 1.6 H (0.6-1.0) mg/dL Est Cr Clr Drug Dosing 19.71 mL/min Estimated GFR (MDRD) 30 L (>60) Glucose 112 H (74-106) mg/dL Calcium 8.9 (8.5-10.1) mg/dL Troponin I 9.028 H* (0.000-0.056) ng/mL 01/06/21 Range/Units 06:06 APTT 67.2 H (27.0-36.0) sec Sodium (140-148) mmol/L Potassium (3.6-5.2) mmol/L Chloride (100-108) mmol/L Carbon Dioxide (21-32) mmol/L Anion Gap (5.0-14.0) mmol/L BUN (7-18) mg/dL Creatinine (0.6-1.0) mg/dL Est Cr Clr Drug Dosing mL/min Estimated GFR (MDRD) (>60) Glucose (74-106) mg/dL Calcium (8.5-10.1) mg/dL Troponin I (0.000-0.056) ng/mL Result Diagrams: 01/05/21 00:55 01/06/21 06:06 Sepsis Event Note - Evaluation Sepsis Screening Result: No Definite Risk - Focused Exam Vital Signs: Vital Signs Temp Pulse Pulse Resp BP BP Pulse Ox 01/06/21 11:00 54 L 12 116/72 97 01/06/21 10:00 55 L 13 114/55 L 92 L 01/06/21 09:00 59 L 15 114/55 L 96 01/06/21 08:11 56 L 138/78 01/06/21 08:10 138/78 01/06/21 08:00 97.7 F 58 L 16 138/78 99 01/06/21 07:00 51 L 150/71 H 01/06/21 06:00 17 125/63 96 01/06/21 05:00 16 92/49 L 95 01/06/21 04:00 97.6 F 16 100/54 L 98 01/06/21 03:00 16 89/49 L 96 01/06/21 02:00 16 95/51 L 97 01/06/21 01:00 17 97/58 L 94 L 01/06/21 00:00 97.9 F 18 103/59 L 95 - Problem List Review Problem List Initiated/Reviewed/Updated: Yes - My Orders Last 24 Hours: My Active Orders 01/05/21 11:13 Code Status [Resuscitation Status] Stat 01/06/21 09:00 Metoprolol Tartrate [Lopressor] 12.5 mg PO BID 01/06/21 17:00 Potassium Chloride [Klor-Con M20] 40 meq PO ONETIME ONE 01/07/21 05:00 BASIC METABOLIC PANEL,BMP [CHEM] Timed TROPONIN I [CHEM] Timed - Plan Plan:: ASSESSMENT AND PLAN NON-ST SEGMENT ELEVATION 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 Denies symptoms of chest pain or pressure. -Continue IV heparin for 48 hours -Continue Plavix -Continue daily aspirin -Continue lisinopril and metoprolol -Continue Lipitor HYPERTENSION-blood pressure has been stable with addition of new medications BRADYCARDIA-secondary to current therapy with metoprolol -Decrease metoprolol to 12.5 mg p.o. twice daily MAINTENANCE ISSUES -DVT prophylaxis; current therapy with IV heparin should provide adequate DVT prophylaxis -GI prophylaxis; not indicated -Angela catheter; not indicated -Nutrition; cardiac diet -Nicotine dependence; not required CODE STATUS-DNR/DNI, I did review this with her. At the time of admission she requested DNR status but was not sure about intubation. When we discuss it further this morning she does not want resuscitation or intubation. ADMISSION STATUS-patient will be admitted to inpatient status, expect at least a 2 night hospital stay for evaluation and management of problems as outlined above. At the time of this admission I do not reasonably expected evaluation and management of this problem will require more than a 96 hour hospital stay. DISPOSITION-anticipate discharge to home after the hospital stay.
[2021-01-06] MEDS ORDERED: Heparin Sodium 5,000 Units/ML Vial ONE (20:08)
[2021-01-06] MEDS: Heparin Sodium 5,000 Units/ML Vial IVPUSH ONE (20:11)
[2021-01-06] MEDS: Gabapentin 300 MG Cap PO SCH (21:06)
[2021-01-06] MEDS: atorvaSTATin 20 MG Tab PO SCH (21:06)
[2021-01-07] MEDS: Levothyroxine 50 MCG Tab PO SCH (07:43)
[2021-01-07] MEDS: Hydrochlorothiazide/Triamterene 25-37.5 Tab PO SCH (09:09)
[2021-01-07] MEDS: Acetaminophen 500 MG Tab PO SCH ×2 (09:10→09:16)
[2021-01-07] MEDS: Clopidogrel 75 MG Tab PO SCH (09:10)
[2021-01-07] MEDS: Lisinopril 2.5 MG Tab PO SCH (09:10)
[2021-01-07] MEDS: predniSONE 20 MG Tab PO SCH ×2 (09:10→09:24)
[2021-01-07] MEDS: Aspirin 81 MG Tab.Chew PO SCH (09:10)
[2021-01-07] MEDS: Metoprolol Tartrate 25 MG Tab PO SCH (09:11)
[2021-01-07] MEDS: Furosemide 20 MG Tab PO SCH (09:11)
--- NOTE | 2021-01-07 11:09 | PCM.PN ---
- General Info Date of Service: 01/07/21 Subjective Update: Ms. Helm has remained stable over the last 24 hours, she denies any recurrent anginal pain. Troponin level continues to slowly improve. She has been intolerant to beta-reilly therapy with heart rates into the 40s even with decreased to extremely low dose. Functional Status: Reports: Tolerating Diet, Ambulating, Urinating - Review of Systems General: Reports: Weakness, Fatigue. Denies: Fever, Chills Pulmonary: Reports: No Symptoms Cardiovascular: Reports: No Symptoms Gastrointestinal: Reports: No Symptoms - Patient Data Vitals - Most Recent: Last Vital Signs Temp 97.6 F 01/07/21 07:00 Pulse 63 01/07/21 09:11 Resp 15 01/07/21 09:00 BP 132/63 01/07/21 09:11 Pulse Ox 97 01/07/21 09:00 Weight - Most Recent: 181 lb 8 oz I&O - Last 24 Hours: Intake & Output 01/06/21 01/07/21 01/07/21 22:59 06:59 14:59 Intake Total 870 454 360 Output Total 850 700 400 Balance 20 -246 -40 Lab Results Last 24 Hours: Laboratory Results - last 24 hr 01/06/21 01/07/21 01/07/21 Range/Units 19:18 00:54 06:07 APTT 44.2 H 59.6 H (27.0-36.0) sec Sodium 141 (140-148) mmol/L Potassium 4.1 (3.6-5.2) mmol/L Chloride 100 (100-108) mmol/L Carbon Dioxide 29 (21-32) mmol/L Anion Gap 12.1 (5.0-14.0) mmol/L BUN 28 H (7-18) mg/dL Creatinine 1.7 H (0.6-1.0) mg/dL Est Cr Clr Drug Dosing 18.55 mL/min Estimated GFR (MDRD) 28 L (>60) Glucose 99 (74-106) mg/dL Calcium 8.7 (8.5-10.1) mg/dL Troponin I 7.692 H* (0.000-0.056) ng/mL 01/07/21 Range/Units 06:07 APTT 54.3 H (27.0-36.0) sec Sodium (140-148) mmol/L Potassium (3.6-5.2) mmol/L Chloride (100-108) mmol/L Carbon Dioxide (21-32) mmol/L Anion Gap (5.0-14.0) mmol/L BUN (7-18) mg/dL Creatinine (0.6-1.0) mg/dL Est Cr Clr Drug Dosing mL/min Estimated GFR (MDRD) (>60) Glucose (74-106) mg/dL Calcium (8.5-10.1) mg/dL Troponin I (0.000-0.056) ng/mL Med Orders - Current: Current Medications Acetaminophen (Acetaminophen 500 Mg Tab) 1,000 mg PO TID [facility] Last Admin: 01/07/21 09:16 Dose: Not Given Documented by: Aspirin (Aspirin 81 Mg Tab.Chew) 81 mg PO DAILY [facility] Last Admin: 01/07/21 09:10 Dose: 81 mg Documented by: Atorvastatin Calcium (Atorvastatin 20 Mg Tab) 20 mg PO BEDTIME [facility] Last Admin: 01/06/21 21:06 Dose: 20 mg Documented by: Clopidogrel Bisulfate (Clopidogrel 75 Mg Tab) 75 mg PO DAILY [facility] Last Admin: 01/07/21 09:10 Dose: 75 mg Documented by: Furosemide (Furosemide 20 Mg Tab) 20 mg PO DAILY [facility] Last Admin: 01/07/21 09:11 Dose: 20 mg Documented by: Gabapentin (Gabapentin 300 Mg Cap) 600 mg PO BEDTIME [facility] Last Admin: 01/06/21 21:06 Dose: 600 mg Documented by: Nitroglycerin/Dextrose (Nitroglycerin 25 Mg/D5w 250 Ml) 25 mg in 250 mls @ 3 mls/hr IV TITRATE [facility]; Protocol Last Titration: 01/06/21 04:10 Dose: 0 mcg/min, 0 mls/hr Documented by: Levothyroxine Sodium (Levothyroxine 50 Mcg Tab) 50 mcg PO DAILY@0730 [facility] Last Admin: 01/07/21 07:43 Dose: 50 mcg Documented by: Lisinopril (Lisinopril 2.5 Mg Tab) 2.5 mg PO DAILY [facility] Last Admin: 01/07/21 09:10 Dose: 2.5 mg Documented by: Morphine Sulfate (Morphine 2 Mg/Ml Syringe) 2 - 4 mg IVPUSH Q1H PRN PRN Reason: severe pain Last Admin: 01/05/21 09:48 Dose: 2 mg Documented by: Nitroglycerin (Nitroglycerin 0.4 Mg Tab.Sl) 0.4 mg SL Q5M PRN PRN Reason: Chest Pain Last Admin: 01/05/21 05:37 Dose: 0.4 mg Documented by: Prednisone (Prednisone 20 Mg Tab) 40 mg PO DAILY [facility] Last Admin: 01/07/21 09:24 Dose: Not Given Documented by: Triamterene/Hydrochlorothiazide (Hydrochlorothiazide/Triamterene 25-37.5 Tab) 0.5 each PO DAILY [facility] Last Admin: 01/07/21 09:09 Dose: 0.5 each Documented by: Discontinued Medications Aspirin (Aspirin 81 Mg Tab.Chew) 324 mg PO ONETIME ONE Stop: 01/05/21 01:39 Last Admin: 01/05/21 01:47 Dose: 324 mg Documented by: Famotidine (Famotidine 20 Mg Tab) 20 mg PO ONETIME ONE Stop: 01/05/21 03:43 Last Admin: 01/05/21 05:04 Dose: Not Given Documented by: Famotidine (Famotidine 20 Mg Tab) 20 mg PO ONETIME ONE Stop: 01/05/21 16:01 Last Admin: 01/05/21 16:55 Dose: 20 mg Documented by: Heparin Sodium (Porcine) (Heparin Sodium 5,000 Units/Ml Vial) 4,000 units IVPUSH ONETIME ONE Stop: 01/05/21 01:42 Last Admin: 01/05/21 02:18 Dose: 4,000 units Documented by: Heparin Sodium (Porcine) (Heparin Sodium 5,000 Units/Ml Vial) 1,000 units IVPUSH BOLUS ONE Stop: 01/05/21 18:18 Last Admin: 01/06/21 20:11 Dose: 1,000 units Documented by: Heparin Sodium (Porcine) (Heparin Sodium 5,000 Units/Ml Vial) Confirm Administered Dose 5,000 units .ROUTE .STK-MED ONE Stop: 01/06/21 20:09 Last Admin: 01/06/21 21:04 Dose: Not Given Documented by: Potassium Chloride/Sodium Chloride (Normal Saline With 20 Meq Kcl) 1,000 mls @ 150 mls/hr IV ASDIRECTED [facility] Last Admin: 01/05/21 08:29 Dose: 150 mls/hr Documented by: Heparin Sodium/Dextrose (Heparin 25,000 Units In D5w 500 Ml) 25,000 units in 500 mls @ 20 mls/hr IV TITRATE [facility]; Protocol Last Infusion: 01/06/21 20:12 Dose: 880 units/hr, 17.6 mls/hr Documented by: Metoprolol Tartrate (Metoprolol Tartrate 25 Mg Tab) 25 mg PO Q12H [facility] Last Admin: 01/05/21 03:16 Dose: Not Given Documented by: Metoprolol Tartrate (Metoprolol Tartrate 25 Mg Tab) 25 mg PO BID [facility] Last Admin: 01/06/21 08:11 Dose: 25 mg Documented by: Metoprolol Tartrate (Metoprolol Tartrate 25 Mg Tab) 12.5 mg PO BID [facility] Last Admin: 01/07/21 09:11 Dose: 12.5 mg Documented by: Morphine Sulfate (Morphine 2 Mg/Ml Syringe) Confirm Administered Dose 2 mg .ROUTE .STK-MED ONE Stop: 01/05/21 05:24 Last Admin: 01/05/21 05:46 Dose: Not Given Documented by: Morphine Sulfate (Morphine 2 Mg/Ml Syringe) Confirm Administered Dose 2 mg .ROUTE .STK-MED ONE Stop: 01/05/21 05:36 Last Admin: 01/05/21 05:46 Dose: Not Given Documented by: Potassium Chloride (Potassium Chloride 20 Meq Tab.Er) 20 meq PO ONETIME ONE Stop: 01/05/21 01:38 Last Admin: 01/05/21 01:47 Dose: 20 meq Documented by: Potassium Chloride (Potassium Chloride 20 Meq Tab.Er) 40 meq PO ONETIME ONE Stop: 01/06/21 09:01 Last Admin: 01/06/21 09:45 Dose: 40 meq Documented by: Potassium Chloride (Potassium Chloride 20 Meq Tab.Er) 40 meq PO ONETIME ONE Stop: 01/06/21 17:01 Last Admin: 01/06/21 16:55 Dose: 40 meq Documented by: Ticagrelor (Ticagrelor 90 Mg Tab) 180 mg PO ONETIME ONE Stop: 01/05/21 01:42 Last Admin: 01/05/21 02:11 Dose: 180 mg Documented by: - Exam General: Alert, Oriented, Cooperative, No Acute Distress Lungs: Clear to Auscultation, Normal Respiratory Effort Cardiovascular: Regular Rate, Regular Rhythm, No Murmurs GI/Abdominal Exam: Soft, Non-Tender, No Organomegaly, No Distention Extremities: Non-Tender, No Pedal Edema - Patient Data Lab Results Last 24 hrs: Laboratory Results - last 24 hr 01/06/21 01/07/21 01/07/21 Range/Units 19:18 00:54 06:07 APTT 44.2 H 59.6 H (27.0-36.0) sec Sodium 141 (140-148) mmol/L Potassium 4.1 (3.6-5.2) mmol/L Chloride 100 (100-108) mmol/L Carbon Dioxide 29 (21-32) mmol/L Anion Gap 12.1 (5.0-14.0) mmol/L BUN 28 H (7-18) mg/dL Creatinine 1.7 H (0.6-1.0) mg/dL Est Cr Clr Drug Dosing 18.55 mL/min Estimated GFR (MDRD) 28 L (>60) Glucose 99 (74-106) mg/dL Calcium 8.7 (8.5-10.1) mg/dL Troponin I 7.692 H* (0.000-0.056) ng/mL 01/07/21 Range/Units 06:07 APTT 54.3 H (27.0-36.0) sec Sodium (140-148) mmol/L Potassium (3.6-5.2) mmol/L Chloride (100-108) mmol/L Carbon Dioxide (21-32) mmol/L Anion Gap (5.0-14.0) mmol/L BUN (7-18) mg/dL Creatinine (0.6-1.0) mg/dL Est Cr Clr Drug Dosing mL/min Estimated GFR (MDRD) (>60) Glucose (74-106) mg/dL Calcium (8.5-10.1) mg/dL Troponin I (0.000-0.056) ng/mL Result Diagrams: 01/05/21 00:55 01/07/21 06:07 Sepsis Event Note - Evaluation Sepsis Screening Result: No Definite Risk - Focused Exam Vital Signs: Vital Signs Temp Pulse Pulse Resp BP BP Pulse Ox 01/07/21 09:11 63 132/63 01/07/21 09:10 132/63 01/07/21 09:00 54 L 15 132/63 97 01/07/21 07:00 97.6 F 52 L 12 132/85 100 01/07/21 06:00 13 130/74 99 01/07/21 04:00 12 124/55 L 99 01/07/21 02:00 17 130/66 98 01/07/21 00:00 97.1 F 18 118/67 98 - Problem List Review Problem List Initiated/Reviewed/Updated: Yes - My Orders Last 24 Hours: My Active Orders 01/07/21 10:53 Consult to Physical Therapy [PT Evaluation and Treatment] [CONS] Routine 01/08/21 05:00 BASIC METABOLIC PANEL,BMP [CHEM] Timed TROPONIN I [CHEM] Timed - Plan Plan:: ASSESSMENT AND PLAN NON-ST SEGMENT ELEVATION 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 Denies symptoms of chest pain or pressure. She has been intolerant to beta-reilly therapy with heart rates into the 40s. -Continue Plavix -Continue daily aspirin -Continue lisinopril -Discontinue metoprolol because of bradycardia -Continue Lipitor HYPERTENSION-blood pressure has been stable with addition of new medications BRADYCARDIA-secondary to current therapy with metoprolol -Discontinue metoprolol MAINTENANCE ISSUES -DVT prophylaxis; current therapy with IV heparin should provide adequate DVT prophylaxis -GI prophylaxis; not indicated -Angela catheter; not indicated -Nutrition; cardiac diet -Nicotine dependence; not required CODE STATUS-DNR/DNI, I did review this with her. At the time of admission she requested DNR status but was not sure about intubation. When we discuss it further this morning she does not want resuscitation or intubation. ADMISSION STATUS-patient will be admitted to inpatient status, expect at least a 2 night hospital stay for evaluation and management of problems as outlined above. At the time of this admission I do not reasonably expected evaluation and management of this problem will require more than a 96 hour hospital stay. DISPOSITION-anticipate discharge to home after the hospital stay.
[2021-01-07] MEDS: Gabapentin 300 MG Cap PO SCH (20:34)
[2021-01-07] MEDS: atorvaSTATin 20 MG Tab PO SCH (20:34)
[2021-01-07] MEDS ORDERED: diphenhydrAMINE 25 MG Cap PO PRN (21:53)
[2021-01-07] MEDS ORDERED: diphenhydrAMINE 25 MG Cap PO SCH (22:00)
[2021-01-08] MEDS: Levothyroxine 50 MCG Tab PO SCH (07:49)
[2021-01-08] MEDS: Furosemide 20 MG Tab PO SCH ×2 (08:36→15:17)
[2021-01-08] MEDS: Aspirin 81 MG Tab.Chew PO SCH (08:36)
[2021-01-08] MEDS: Hydrochlorothiazide/Triamterene 25-37.5 Tab PO SCH ×2 (08:36→15:18)
[2021-01-08] MEDS: Clopidogrel 75 MG Tab PO SCH (08:37)
[2021-01-08] MEDS ORDERED: Metoprolol Succinate 25 MG Tab.ER PO SCH ×2 (09:00→21:00)
[2021-01-08] MEDS ORDERED: diphenhydrAMINE 25 MG Cap PO PRN (10:48)
--- NOTE | 2021-01-08 10:53 | PCM.PN ---
- General Info Date of Service: 01/08/21 Subjective Update: Ms. Helm been stable since yesterday, currently denies any symptoms of angina. Blood pressures trended somewhat low. Energy level seems to be improving and she was able to walk in the hallway today with assistance from physical therapy. Functional Status: Reports: Tolerating Diet, Ambulating, Urinating - Review of Systems General: Reports: Weakness. Denies: Fever, Chills Pulmonary: Reports: No Symptoms Cardiovascular: Reports: No Symptoms Gastrointestinal: Reports: No Symptoms Genitourinary: Reports: No Symptoms - Patient Data Vitals - Most Recent: Last Vital Signs Temp 97.9 F 01/08/21 07:00 Pulse 78 01/08/21 09:00 Resp 18 01/08/21 09:00 BP 95/66 01/08/21 09:00 Pulse Ox 96 01/08/21 09:00 Weight - Most Recent: 181 lb 8 oz Lab Results Last 24 Hours: Laboratory Results - last 24 hr 01/08/21 Range/Units 05:00 Sodium 141 (140-148) mmol/L Potassium 4.6 (3.6-5.2) mmol/L Chloride 102 (100-108) mmol/L Carbon Dioxide 28 (21-32) mmol/L Anion Gap 11.5 (5.0-14.0) mmol/L BUN 34 H (7-18) mg/dL Creatinine 1.8 H (0.6-1.0) mg/dL Est Cr Clr Drug Dosing 17.52 mL/min Estimated GFR (MDRD) 26 L (>60) Glucose 93 (74-106) mg/dL Calcium 9.2 (8.5-10.1) mg/dL Troponin I 5.778 H* (0.000-0.056) ng/mL Med Orders - Current: Current Medications Aspirin (Aspirin 81 Mg Tab.Chew) 81 mg PO DAILY [facility] Last Admin: 01/08/21 08:36 Dose: 81 mg Documented by: Atorvastatin Calcium (Atorvastatin 20 Mg Tab) 20 mg PO BEDTIME [facility] Last Admin: 01/07/21 20:34 Dose: 20 mg Documented by: Clopidogrel Bisulfate (Clopidogrel 75 Mg Tab) 75 mg PO DAILY [facility] Last Admin: 01/08/21 08:37 Dose: 75 mg Documented by: Diphenhydramine HCl (Diphenhydramine 25 Mg Cap) 25 mg PO BEDTIME PRN PRN Reason: Insomnia Furosemide (Furosemide 20 Mg Tab) 20 mg PO DAILY [facility] Last Admin: 01/07/21 09:11 Dose: 20 mg Documented by: Gabapentin (Gabapentin 300 Mg Cap) 600 mg PO BEDTIME [facility] Last Admin: 01/07/21 20:34 Dose: 600 mg Documented by: Levothyroxine Sodium (Levothyroxine 50 Mcg Tab) 50 mcg PO DAILY@0730 [facility] Last Admin: 01/08/21 07:49 Dose: 50 mcg Documented by: Lisinopril (Lisinopril 2.5 Mg Tab) 2.5 mg PO DAILY [facility] Last Admin: 01/07/21 09:10 Dose: 2.5 mg Documented by: Metoprolol Succinate (Metoprolol Succinate 25 Mg Tab.Er) 12.5 mg PO BEDTIME [facility] Morphine Sulfate (Morphine 2 Mg/Ml Syringe) 2 - 4 mg IVPUSH Q1H PRN PRN Reason: severe pain Last Admin: 01/05/21 09:48 Dose: 2 mg Documented by: Nitroglycerin (Nitroglycerin 0.4 Mg Tab.Sl) 0.4 mg SL Q5M PRN PRN Reason: Chest Pain Last Admin: 01/05/21 05:37 Dose: 0.4 mg Documented by: Discontinued Medications Acetaminophen (Acetaminophen 500 Mg Tab) 1,000 mg PO TID [facility] Last Admin: 01/07/21 09:16 Dose: Not Given Documented by: Aspirin (Aspirin 81 Mg Tab.Chew) 324 mg PO ONETIME ONE Stop: 01/05/21 01:39 Last Admin: 01/05/21 01:47 Dose: 324 mg Documented by: Diphenhydramine HCl (Diphenhydramine 25 Mg Cap) 25 mg PO Q6H PRN PRN Reason: Insomnia Famotidine (Famotidine 20 Mg Tab) 20 mg PO ONETIME ONE Stop: 01/05/21 03:43 Last Admin: 01/05/21 05:04 Dose: Not Given Documented by: Famotidine (Famotidine 20 Mg Tab) 20 mg PO ONETIME ONE Stop: 01/05/21 16:01 Last Admin: 01/05/21 16:55 Dose: 20 mg Documented by: Heparin Sodium (Porcine) (Heparin Sodium 5,000 Units/Ml Vial) 4,000 units I VPUSH ONETIME ONE Stop: 01/05/21 01:42 Last Admin: 01/05/21 02:18 Dose: 4,000 units Documented by: Heparin Sodium (Porcine) (Heparin Sodium 5,000 Units/Ml Vial) 1,000 units IVPUSH BOLUS ONE Stop: 01/05/21 18:18 Last Admin: 01/06/21 20:11 Dose: 1,000 units Documented by: Heparin Sodium (Porcine) (Heparin Sodium 5,000 Units/Ml Vial) Confirm Administered Dose 5,000 units .ROUTE .STK-MED ONE Stop: 01/06/21 20:09 Last Admin: 01/06/21 21:04 Dose: Not Given Documented by: Potassium Chloride/Sodium Chloride (Normal Saline With 20 Meq Kcl) 1,000 mls @ 150 mls/hr IV ASDIRECTED [facility] Last Admin: 01/05/21 08:29 Dose: 150 mls/hr Documented by: Heparin Sodium/Dextrose (Heparin 25,000 Units In D5w 500 Ml) 25,000 units in 500 mls @ 20 mls/hr IV TITRATE [facility]; Protocol Last Infusion: 01/06/21 20:12 Dose: 880 units/hr, 17.6 mls/hr Documented by: Nitroglycerin/Dextrose (Nitroglycerin 25 Mg/D5w 250 Ml) 25 mg in 250 mls @ 3 mls/hr IV TITRATE [facility]; Protocol Last Titration: 01/06/21 04:10 Dose: 0 mcg/min, 0 mls/hr Documented by: Metoprolol Succinate (Metoprolol Succinate 25 Mg Tab.Er) 12.5 mg PO DAILY [facility] Metoprolol Tartrate (Metoprolol Tartrate 25 Mg Tab) 25 mg PO Q12H [facility] Last Admin: 01/05/21 03:16 Dose: Not Given Documented by: Metoprolol Tartrate (Metoprolol Tartrate 25 Mg Tab) 25 mg PO BID [facility] Last Admin: 01/06/21 08:11 Dose: 25 mg Documented by: Metoprolol Tartrate (Metoprolol Tartrate 25 Mg Tab) 12.5 mg PO BID [facility] Last Admin: 01/07/21 09:11 Dose: 12.5 mg Documented by: Morphine Sulfate (Morphine 2 Mg/Ml Syringe) Confirm Administered Dose 2 mg .ROU TE .STK-MED ONE Stop: 01/05/21 05:24 Last Admin: 01/05/21 05:46 Dose: Not Given Documented by: Morphine Sulfate (Morphine 2 Mg/Ml Syringe) Confirm Administered Dose 2 mg .ROUTE .STK-MED ONE Stop: 01/05/21 05:36 Last Admin: 01/05/21 05:46 Dose: Not Given Documented by: Potassium Chloride (Potassium Chloride 20 Meq Tab.Er) 20 meq PO ONETIME ONE Stop: 01/05/21 01:38 Last Admin: 01/05/21 01:47 Dose: 20 meq Documented by: Potassium Chloride (Potassium Chloride 20 Meq Tab.Er) 40 meq PO ONETIME ONE Stop: 01/06/21 09:01 Last Admin: 01/06/21 09:45 Dose: 40 meq Documented by: Potassium Chloride (Potassium Chloride 20 Meq Tab.Er) 40 meq PO ONETIME ONE Stop: 01/06/21 17:01 Last Admin: 01/06/21 16:55 Dose: 40 meq Documented by: Prednisone (Prednisone 20 Mg Tab) 40 mg PO DAILY [facility] Last Admin: 01/07/21 09:24 Dose: Not Given Documented by: Ticagrelor (Ticagrelor 90 Mg Tab) 180 mg PO ONETIME ONE Stop: 01/05/21 01:42 Last Admin: 01/05/21 02:11 Dose: 180 mg Documented by: Triamterene/Hydrochlorothiazide (Hydrochlorothiazide/Triamterene 25-37.5 Tab) 0.5 each PO DAILY [facility] Last Admin: 01/07/21 09:09 Dose: 0.5 each Documented by: - Exam Quality Assessment: DVT Prophylaxis General: Alert, Oriented, Cooperative, Mild Distress Lungs: Clear to Auscultation, Normal Respiratory Effort Cardiovascular: Regular Rate, Regular Rhythm, No Murmurs GI/Abdominal Exam: Soft, Non-Tender, No Organomegaly, No Distention Extremities: Non-Tender, No Pedal Edema - Patient Data Lab Results Last 24 hrs: Laboratory Results - last 24 hr 01/08/21 Range/Units 05:00 Sodium 141 (140-148) mmol/L Potassium 4.6 (3.6-5.2) mmol/L Chloride 102 (100-108) mmol/L Carbon Dioxide 28 (21-32) mmol/L Anion Gap 11.5 (5.0-14.0) mmol/L BUN 34 H (7-18) mg/dL Creatinine 1.8 H (0.6-1.0) mg/dL Est Cr Clr Drug Dosing 17.52 mL/min Estimated GFR (MDRD) 26 L (>60) Glucose 93 (74-106) mg/dL Calcium 9.2 (8.5-10.1) mg/dL Troponin I 5.778 H* (0.000-0.056) ng/mL Result Diagrams: 01/05/21 00:55 01/08/21 05:00 Sepsis Event Note - Evaluation Sepsis Screening Result: No Definite Risk - Focused Exam Vital Signs: Vital Signs Temp Pulse Resp BP Pulse Ox 01/08/21 09:00 78 18 95/66 96 01/08/21 07:00 97.9 F 89 17 108/60 96 01/08/21 05:00 68 16 87/48 L 97 01/08/21 03:00 63 19 108/58 L 96 01/08/21 01:00 61 19 103/57 L 97 01/07/21 23:00 63 20 112/55 L 95 - Problem List Review Problem List Initiated/Reviewed/Updated: Yes - My Orders Last 24 Hours: My Active Orders 01/07/21 10:53 Consult to Physical Therapy [PT Evaluation and Treatment] [CONS] Routine 01/08/21 10:46 Patient Status [ADT] Routine 01/08/21 10:48 diphenhydrAMINE [Benadryl] 25 mg PO BEDTIME PRN 01/08/21 21:00 Metoprolol Succinate [Toprol XL] 12.5 mg PO BEDTIME - Plan Plan:: ASSESSMENT AND PLAN NON-ST SEGMENT ELEVATION MYOCARDIAL INFARCTION-stable over the last 24 hours. Denies symptoms of chest pain or pressure. Heart rate improved off of metoprolol, will try to restart at lower dose -Continue Plavix -Continue daily aspirin -Continue lisinopril -Metoprolol XL 12.5 mg p.o. at bedtime -Continue Lipitor HYPERTENSION-has been somewhat low -Discontinue hydrochlorothiazide and spironolactone -Continue to monitor BRADYCARDIA-improved off of metoprolol -Restart metoprolol at lower dose CHRONIC KIDNEY DISEASE STAGE IV -Closely monitor renal function and urine output MAINTENANCE ISSUES -DVT prophylaxis; Lovenox 30 mg subcu daily -GI prophylaxis; not indicated -Angela catheter; not indicated -Nutrition; cardiac diet -Nicotine dependence; not required CODE STATUS-DNR/DNI, I did review this with her. At the time of admission she requested DNR status but was not sure about intubation. When we discuss it further this morning she does not want resuscitation or intubation. ADMISSION STATUS-patient will be admitted to inpatient status, expect at least a 2 night hospital stay for evaluation and management of problems as outlined above. At the time of this admission I do not reasonably expected evaluation and management of this problem will require more than a 96 hour hospital stay. DISPOSITION-anticipate discharge to home after the hospital stay.
[2021-01-08] MEDS ORDERED: Enoxaparin 30 MG/0.3 ML Syringe SUBCUT SCH (11:00)
[2021-01-08] MEDS: Lisinopril 2.5 MG Tab PO SCH (15:17)
[2021-01-08] MEDS: Gabapentin 300 MG Cap PO SCH (20:23)
[2021-01-08] MEDS: atorvaSTATin 20 MG Tab PO SCH (20:24)
[2021-01-09] MEDS: Levothyroxine 50 MCG Tab PO SCH (07:38)
[2021-01-09] MEDS: Aspirin 81 MG Tab.Chew PO SCH (08:44)
[2021-01-09] MEDS: Clopidogrel 75 MG Tab PO SCH (08:44)
[2021-01-09] MEDS: Furosemide 20 MG Tab PO SCH (08:49)
[2021-01-09] MEDS: Lisinopril 2.5 MG Tab PO SCH (08:50)
[2021-01-09 08:57] VITALS: PULSE 75
[2021-01-09 09:27] VITALS: BP 95/62
--- NOTE | 2021-01-09 09:27 | PCM.DCSUM1 ---
Discharge Summary - Hospital Course Brief History: Ms. Helm is an 89-year-old woman who was admitted through the emergency department with chest pain secondary to a non-ST segment elevation myocardial infarction. - Discharge Data Discharge Date: 01/09/21 Discharge Disposition: Home, Self-Care 01 Condition: Fair - Referral to Home Health Primary Care Physician: PCP None - Discharge Diagnosis/Problem(s) (1) CKD (chronic kidney disease), stage III SNOMED Code(s): 712319399 ICD Code: N18.3 - CHRONIC KIDNEY DISEASE, STAGE 3 (MODERATE) * DO NOT USE * Status: Chronic Current Visit: No (2) Essential hypertension SNOMED Code(s): 78890950 ICD Code: I10 - ESSENTIAL (PRIMARY) HYPERTENSION Status: Chronic Current Visit: No (3) Non-STEMI (non-ST elevated myocardial infarction) SNOMED Code(s): 70406327 ICD Code: I21.4 - NON-ST ELEVATION (NSTEMI) MYOCARDIAL INFARCTION Status: Acute Current Visit: Yes - Patient Summary/Data Consults: Consultations 01/07/21 10:53 Consult to Physical Therapy [PT Evaluation and Treatment] [CONS] Routine Please Evaluate and Treat. PT Reason for Consult: Weakness, status post myocardial infarction This query below is only for informational purposes and is not editable. Admission Diagnosis/Problem: Acute myocardial infarction Hospital Course: Ms. Helm is an 89-year-old woman who was admitted through the emergency department with symptoms of chest pain secondary to non-ST segment elevation myocardial infarction. She had experienced symptoms of chest pain intermittently for a few days prior to admission. On the day of admission pain became more intense and she presented to the emergency department for evaluation. EKG showed no evidence of ST segment elevation but there were some flipped T waves and ST segment depression. Troponin level was significantly elevated consistent with myocardial infarction. It was recommended to the patient that she be transferred to a tertiary care center to be seen by cardiology which she refused. She does not want further aggressive interventions or evaluation but did agree to admission here for medical management. She was started on IV heparin on admission as well as Plavix, metoprolol, lisinopril, and Lipitor. She did experience one episode of recurrent pain after admission and was started on IV nitroglycerin for management of that pain. She had no further chest pain throughout her hospital stay and the IV nitroglycerin was discontinued by the next morning. She did receive 48 hours of IV heparin which was then discontinued. She was seen and evaluated by physical therapy and was walking in the hallways with use of a walker prior to discharge. She was able to tolerate only very low-dose beta- reilly therapy because of bradycardia. She was intolerant of the lisinopril because of hypotension and will not be discharged home on this medication. Follow-up appointment will be scheduled with her primary care provider Dr. Lazo within 1 week. Echocardiogram will be scheduled as an outpatient for assessment of left ventricular function. Activity will be as tolerated and she will be on a low-sodium low-fat diet. - Patient Instructions Diet: Low Sodium Activity: As Tolerated Other/Special Instructions: Please schedule follow-up appointment with Dr. Lazo within 1 week. Please schedule echocardiogram to assess left ventricular function following myocardial infarction. - Discharge Plan *PRESCRIPTION DRUG MONITORING PROGRAM REVIEWED*: Not Applicable *COPY OF PRESCRIPTION DRUG MONITORING REPORT IN PATIENT CONNER: Not Applicable Prescriptions/Med Rec: atorvaSTATin [Lipitor] 20 mg PO BEDTIME #30 tablet Clopidogrel [Plavix] 75 mg PO DAILY #30 tablet Metoprolol Succinate [Toprol XL] 12.5 mg PO BEDTIME #15 tab.er Home Medications: Home Meds Aspirin [Children's Aspirin] 1 tab PO DAILY 07/24/14 [History] Gabapentin [Neurontin] 600 mg PO BEDTIME 07/24/14 [History] Levothyroxine [Synthroid] 50 mcg PO DAILY 07/24/14 [History] Acetaminophen [Tylenol Extra Strength] 1,000 mg PO TID #200 tablet 01/29/20 [Rx] Furosemide 20 mg PO DAILY 01/05/21 [History] Clopidogrel [Plavix] 75 mg PO DAILY #30 tablet 01/09/21 [Rx] Metoprolol Succinate [Toprol XL] 12.5 mg PO BEDTIME #15 tab.er 01/09/21 [Rx] atorvaSTATin [Lipitor] 20 mg PO BEDTIME #30 tablet 01/09/21 [Rx] Referrals: Sim Lazo MD [Physician] - 01/12/21 1:30 pm (Please arrivve 15 minutes early to register for your appointment.) - Discharge Summary/Plan Comment DC Time >30 min.: No - Patient Data Vitals - Most Recent: Last Vital Signs Temp 98.5 F 01/09/21 07:00 Pulse 75 01/09/21 07:00 Resp 17 01/09/21 07:00 BP 95/62 01/09/21 08:50 Pulse Ox 95 01/09/21 07:00 Weight - Most Recent: 181 lb 8 oz I&O - Last 24 hours: Intake & Output 01/08/21 01/09/21 01/09/21 22:59 06:59 14:59 Output Total 2 Balance -2 Med Orders - Current: Current Medications Aspirin (Aspirin 81 Mg Tab.Chew) 81 mg PO DAILY [facility] Last Admin: 01/09/21 08:44 Dose: 81 mg Documented by: Atorvastatin Calcium (Atorvastatin 20 Mg Tab) 20 mg PO BEDTIME [facility] Last Admin: 01/08/21 20:24 Dose: 20 mg Documented by: Clopidogrel Bisulfate (Clopidogrel 75 Mg Tab) 75 mg PO DAILY [facility] Last Admin: 01/09/21 08:44 Dose: 75 mg Documented by: Diphenhydramine HCl (Diphenhydramine 25 Mg Cap) 25 mg PO BEDTIME PRN PRN Reason: Insomnia Enoxaparin Sodium (Enoxaparin 30 Mg/0.3 Ml Syringe) 30 mg SUBCUT Q24H [facility] Last Admin: 01/08/21 12:10 Dose: 30 mg Documented by: Furosemide (Furosemide 20 Mg Tab) 20 mg PO DAILY [facility] Last Admin: 01/09/21 08:49 Dose: 20 mg Documented by: Gabapentin (Gabapentin 300 Mg Cap) 600 mg PO BEDTIME [facility] Last Admin: 01/08/21 20:23 Dose: 600 mg Documented by: Levothyroxine Sodium (Levothyroxine 50 Mcg Tab) 50 mcg PO DAILY@0730 [facility] Last Admin: 01/09/21 07:38 Dose: 50 mcg Documented by: Lisinopril (Lisinopril 2.5 Mg Tab) 2.5 mg PO DAILY [facility] Last Admin: 01/09/21 08:50 Dose: Not Given Documented by: Metoprolol Succinate (Metoprolol Succinate 25 Mg Tab.Er) 12.5 mg PO BEDTIME [facility] Last Admin: 01/08/21 20:23 Dose: 12.5 mg Documented by: Morphine Sulfate (Morphine 2 Mg/Ml Syringe) 2 - 4 mg IVPUSH Q1H PRN PRN Reason: severe pain Last Admin: 01/05/21 09:48 Dose: 2 mg Documented by: Nitroglycerin (Nitroglycerin 0.4 Mg Tab.Sl) 0.4 mg SL Q5M PRN PRN Reason: Chest Pain Last Admin: 01/05/21 05:37 Dose: 0.4 mg Documented by: Discontinued Medications Acetaminophen (Acetaminophen 500 Mg Tab) 1,000 mg PO TID [facility] Last Admin: 01/07/21 09:16 Dose: Not Given Documented by: Aspirin (Aspirin 81 Mg Tab.Chew) 324 mg PO ONETIME ONE Stop: 01/05/21 01:39 Last Admin: 01/05/21 01:47 Dose: 324 mg Documented by: Diphenhydramine HCl (Diphenhydramine 25 Mg Cap) 25 mg PO Q6H PRN PRN Reason: Insomnia Famotidine (Famotidine 20 Mg Tab) 20 mg PO ONETIME ONE Stop: 01/05/21 03:43 Last Admin: 01/05/21 05:04 Dose: Not Given Documented by: Famotidine (Famotidine 20 Mg Tab) 20 mg PO ONETIME ONE Stop: 01/05/21 16:01 Last Admin: 01/05/21 16:55 Dose: 20 mg Documented by: Heparin Sodium (Porcine) (Heparin Sodium 5,000 Units/Ml Vial) 4,000 units IVPUSH ONETIME ONE Stop: 01/05/21 01:42 Last Admin: 01/05/21 02:18 Dose: 4,000 units Documented by: Heparin Sodium (Porcine) (Heparin Sodium 5,000 Units/Ml Vial) 1,000 units IVPUSH BOLUS ONE Stop: 01/05/21 18:18 Last Admin: 01/06/21 20:11 Dose: 1,000 units Documented by: Heparin Sodium (Porcine) (Heparin Sodium 5,000 Units/Ml Vial) Confirm Administered Dose 5,000 units .ROUTE .STK-MED ONE Stop: 01/06/21 20:09 Last Admin: 01/06/21 21:04 Dose: Not Given Documented by: Potassium Chloride/Sodium Chloride (Normal Saline With 20 Meq Kcl) 1,000 mls @ 150 mls/hr IV ASDIRECTED [facility] Last Admin: 01/05/21 08:29 Dose: 150 mls/hr Documented by: Heparin Sodium/Dextrose (Heparin 25,000 Units In D5w 500 Ml) 25,000 units in 500 mls @ 20 mls/hr IV TITRATE [facility]; Protocol Last Infusion: 01/06/21 20:12 Dose: 880 units/hr, 17.6 mls/hr Documented by: Nitroglycerin/Dextrose (Nitroglycerin 25 Mg/D5w 250 Ml) 25 mg in 250 mls @ 3 mls/hr IV TITRATE [facility]; Protocol Last Titration: 01/06/21 04:10 Dose: 0 mcg/min, 0 mls/hr Documented by: Metoprolol Succinate (Metoprolol Succinate 25 Mg Tab.Er) 12.5 mg PO DAILY [facility] Last Admin: 01/08/21 15:18 Dose: Not Given Documented by: Metoprolol Tartrate (Metoprolol Tartrate 25 Mg Tab) 25 mg PO Q12H [facility] Last Admin: 01/05/21 03:16 Dose: Not Given Documented by: Metoprolol Tartrate (Metoprolol Tartrate 25 Mg Tab) 25 mg PO BID [facility] Last Admin: 01/06/21 08:11 Dose: 25 mg Documented by: Metoprolol Tartrate (Metoprolol Tartrate 25 Mg Tab) 12.5 mg PO BID [facility] Last Admin: 01/07/21 09:11 Dose: 12.5 mg Documented by: Morphine Sulfate (Morphine 2 Mg/Ml Syringe) Confirm Administered Dose 2 mg .ROUTE .STK-MED ONE Stop: 01/05/21 05:24 Last Admin: 01/05/21 05:46 Dose: Not Given Documented by: Morphine Sulfate (Morphine 2 Mg/Ml Syringe) Confirm Administered Dose 2 mg .ROUT E .STK-MED ONE Stop: 01/05/21 05:36 Last Admin: 01/05/21 05:46 Dose: Not Given Documented by: Potassium Chloride (Potassium Chloride 20 Meq Tab.Er) 20 meq PO ONETIME ONE Stop: 01/05/21 01:38 Last Admin: 01/05/21 01:47 Dose: 20 meq Documented by: Potassium Chloride (Potassium Chloride 20 Meq Tab.Er) 40 meq PO ONETIME ONE Stop: 01/06/21 09:01 Last Admin: 01/06/21 09:45 Dose: 40 meq Documented by: Potassium Chloride (Potassium Chloride 20 Meq Tab.Er) 40 meq PO ONETIME ONE Stop: 01/06/21 17:01 Last Admin: 01/06/21 16:55 Dose: 40 meq Documented by: Prednisone (Prednisone 20 Mg Tab) 40 mg PO DAILY [facility] Last Admin: 01/07/21 09:24 Dose: Not Given Documented by: Ticagrelor (Ticagrelor 90 Mg Tab) 180 mg PO ONETIME ONE Stop: 01/05/21 01:42 Last Admin: 01/05/21 02:11 Dose: 180 mg Documented by: Triamterene/Hydrochlorothiazide (Hydrochlorothiazide/Triamterene 25-37.5 Tab) 0.5 each PO DAILY [facility] Last Admin: 01/08/21 15:18 Dose: Not Given Documented by: - Exam Quality Assessment: Reports: DVT Prophylaxis General: Reports: Alert, Oriented, Cooperative, No Acute Distress Lungs: Reports: Clear to Auscultation, Normal Respiratory Effort Cardiovascular: Reports: Regular Rate, Regular Rhythm, No Murmurs GI/Abdominal Exam: Soft, Non-Tender, No Organomegaly, No Distention Extremities: Non-Tender, No Pedal Edema
== END 2021-01-09 11:30 | disposition home or self-care (01) | DRG 282 ==
LOC: JP.ED 00:17 → JP.ICU 02:20
PROVIDERS: ADMIT Family Medicine; ATTEND Hospitalist
DX: I21.4 Non-ST elevation (NSTEMI) myocardial infarction (principal); E87.6 Hypokalemia; H91.90 Unspecified hearing loss, unspecified ear; I10 Essential (primary) hypertension; I12.9 Hypertensive chronic kidney disease with stage 1 through stage 4 chronic kidney disease, or unspecified chronic kidney disease; M54.9 Dorsalgia, unspecified; N18.30 Chronic kidney disease, stage 3 unspecified; Z85.038 Personal history of other malignant neoplasm of large intestine; R00.1 Bradycardia, unspecified; Z87.891 Personal history of nicotine dependence; I95.9 Hypotension, unspecified; Z79.899 Other long term (current) drug therapy; Z79.82 Long term (current) use of aspirin; Z79.02 Long term (current) use of antithrombotics/antiplatelets; Z79.890 Hormone replacement therapy; Z90.710 Acquired absence of both cervix and uterus; Z90.49 Acquired absence of other specified parts of digestive tract; Z98.41 Cataract extraction status, right eye; Z98.42 Cataract extraction status, left eye; G89.29 Other chronic pain; M54.5 Low back pain; E03.9 Hypothyroidism, unspecified; G25.81 Restless legs syndrome; Z79.52 Long term (current) use of systemic steroids; M51.36 Other intervertebral disc degeneration, lumbar region
CPT/HCPCS: 36415; 80048; 80061; 81001; 83735; 84443; 84484; 85027; 85730; 93005; 96365; 96375; 97161-GP; 97530-GP; 99284; 99285-25; A9270-GY; J1644; J1650; J2270; J3480; J3490; J7512